=== PATIENT | female | born 1935 | race Caucasian/White ===

== ENCOUNTER 2020-05-22 09:13 | Outpatient (REF) | payer MEDICARE, SELFPAY ==
[2020-05-22 12:00] LABS: Free T4 (Free Thyroxine) 0.81 ng/dL (0.71-1.85)
== END 2020-05-22 09:14 | disposition home or self-care (01) ==
LOC: HO.HMGCLDS 09:13
PROVIDERS: PCP Internal Medicine; Visit Provider Internal Medicine Endocrinology, Diabetes & Metabolism
DX: R94.6 Abnormal results of thyroid function studies (principal)
CPT/HCPCS: 36415; 84439; 84443

== ENCOUNTER → 2020-05-31 09:48 | Outpatient (BNVA) | payer MEDICARE, SELFPAY | PROVIDERS: PCP Internal Medicine; Visit Provider Internal Medicine Endocrinology, Diabetes & Metabolism | DX: E04.2 Nontoxic multinodular goiter (principal); E06.3 Autoimmune thyroiditis | CPT/HCPCS: 99212 ==

== ENCOUNTER 2020-06-06 11:07 | Outpatient (REF) | payer MEDICARE, SELFPAY ==
--- NOTE | ~2020-06-06 | US_ITS ---
EXAMINATION: US THYROID CLINICAL INFORMATION: Nontoxic multinodular goiter. COMPARISON: None TECHNIQUE: Linear transducer clemente-scale and color Doppler examination with attention to the region of the thyroid. FINDINGS: SIZE: Measurements of the thyroid lobes and nodules are given in sagittal, anteroposterior and transverse dimensions respectively. Right Thyroid Lobe: 3.75 x 1.90 x 1.54 cm, volume 5.75 mL. Previously it measured 3.4 x 1.6 x 1.5 cm and volume 4.3 mL. Parenchyma: The gland echotexture is heterogeneous. Thyroid vascularity is increased. Left Thyroid Lobe: 4.05 x 1.63 x 1.59 cm, volume 5.48 mL. Parenchyma: The gland echotexture is heterogeneous. Thyroid vascularity is normal. Isthmus: 0.19 cm in maximum AP dimension. Previously it measured 0.21 cm. Estimated total number of nodules greater than or equal to 1 cm: 3. Drapery Inspector nodules are described as follows: 1. Location: Midpole. Size: 1.3 x 0.95 x 1.1 cm, volume 0.71 mL. Previously measured 1.2 x 1.0 x 1.1 cm and volume 0.69 mL. Nodule characteristics: Composition: Mixed cystic and solid (1). Echogenicity: Hyperechoic (1). Shape: Not taller than wide (0). Margins: Smooth (0). Echogenic Foci: None (0). ACR TI-RADS total points: 2 ACR TI-RADS category: 2 2. Location: Midpole. Size: 1.3 x 0.80 x 1.1 cm, volume 0.60 mL. Previously measured 1.4 x 0.80 x 1.1 cm and volume 0.64 mL. Nodule characteristics: Composition: Mixed cystic and solid (1). Echogenicity: Hyperechoic (1). Shape: Not taller than wide. Margins: Smooth (0). Echogenic Foci: None (0). ACR TI-RADS total points: 2 ACR TI-RADS category: 2 3. Location: Lower pole. Size: 1.2 x 1.2 x 1.2 cm, volume 0.90 mL. Nodule characteristics: Composition: Mixed cystic and solid (1). Echogenicity: Hyperechoic (1). Shape: Not taller than wide. Margins: Smooth (0). Echogenic Foci: None (0). ACR TI-RADS total points: 2 ACR TI-RADS category: 2 NODES: No lymphadenopathy is seen in the tissue surrounding the thyroid gland. US/US thyroid IMPRESSION: Mixed nodules in the right and left lobe with TI-RADS grade 2. A 1-year followup can be performed. ACR TI-RADS RECOMMENDATION REFERENCE: Ultrasound-guided fine-needle aspiration, followup ultrasound, no further follow up. * TR1 (0 point) and TR 2 (2 points): No FNA or follow up * TR3 (3 points): FNA if more than or equal to 2.5 cm in maximum dimension, followup ultrasound in 1, 3 and 5 years if 1.5 to 2.4 cm in maximum dimension. * TR4 (4-6 points): FNA if more than or equal to 1.5 cm in maximum dimension, followup ultrasound in 1, 2, 3 and 5 years if 1 to 1.4 cm in maximum dimension. * TR5 (more than or equal to 7 points): FNA if more than or equal to 1 cm in maximum dimension, followup ultrasound every year for 5 years if 0.5 to 0.9 cm in maximum dimension. * TR3, TR4 or TR5 nodules that are below the size threshold for follow up receive no follow up.
== END 2020-06-06 11:08 | disposition home or self-care (01) ==
LOC: HO.HMGCX 11:07
PROVIDERS: PCP Internal Medicine; Visit Provider Internal Medicine Endocrinology, Diabetes & Metabolism
DX: E04.2 Nontoxic multinodular goiter (principal)
CPT/HCPCS: 76536

== ENCOUNTER 2020-09-10 06:04 | Outpatient (REF) | payer MEDICARE, SELFPAY ==
[2020-09-10 11:23] LABS: MANUAL DIFF FLAG NO
[2020-09-10 11:29] LABS: Basophils Absolute Auto 0.1 X10*3/uL (0.0-0.2); Basophils Percent Auto 0.7 % (0-2); Eosinophils Absolute Auto 0.3 X10*3/uL (0.0-0.4); Eosinophils Percent Auto 3.4 % (0-4); Hemoglobin 14.7 g/dl (12.0-16.0); Imm Gran Abs Auto 0.04 X10*3/uL (0.00-0.03); Imm Gran Pct Auto 0.4 % (0.0-0.4); Lymphocytes Absolute Auto 3.1 X10*3/uL (1.2-4.9); Lymphocytes Percent Auto 33.6 % (20-40); Mean Corpuscular HGB Conc 31.3 g/dl (31.0-35.0); Mean Corpuscular Hemoglobin 28.1 pg (27.0-33.0); Mean Corpuscular Volume 89.7 fL (80-98); Mean Platelet Volume 10.1 fL (9.4-12.3); Monocytes Absolute Auto 0.7 X10*3/uL (0.1-1.2); Monocytes Percent Auto 7.8 % (2-11); Neutrophils Percent Auto 54.1 % (45-73); Platelet Count 310 X10*3/uL (160-400); Red Blood Count 5.24 X10*6/uL (4.20-5.50); White Blood Count 9.2 X10*3/uL (4.8-10.8)
[2020-09-10 12:15] LABS: Free T4 (Free Thyroxine) 0.89 ng/dL (0.71-1.85); Thyroid Stimulating Hormone 3.46 uIU/mL (0.32-4.0); Vitamin D 25-OH Total 41.2 ng/mL (>30)
[2020-09-10 12:16] LABS: Alanine Aminotransferase < 6 U/L (0-31); Albumin Level 4.3 g/dL (3.5-5.0); Alkaline Phosphatase 57 U/L (39-117); Anion Gap 12 (12-20); Aspartate Amino Transferase 14 U/L (5-31); Bilirubin Total 0.7 mg/dL (0.0-1.0); Blood Urea Nitrogen 12 mg/dL (9-16); Calcium 9.5 mg/dL (8.4-10.2); Carbon Dioxide 27 mmol/L (22-29); Chloride 105 mmol/L (96-108); Cholesterol 214 mg/dL; Estimated Glomerular Filt Rate > 60; Glucose Fasting 89 mg/dL (60-99); HDL Cholesterol 57 mg/dL; LDL Cholesterol Calculated 131 mg/dl; Potassium 4.3 mmol/L (3.3-5.1); Sodium 140 mmol/L (135-145); Total Protein 6.8 g/dL (6.5-8.0); Triglycerides 133 mg/dL
[2020-09-10 12:27] LABS: Folate > 20.0 ng/mL (> or = 4.0); Vitamin B12 > 2000 pg/mL (200-900)
== END 2020-09-10 06:05 | disposition home or self-care (01) ==
LOC: HO.HMGCLDS 06:04
PROVIDERS: PCP Internal Medicine; Visit Provider Internal Medicine
DX: Z13.1 Encounter for screening for diabetes mellitus (principal); E78.00 Pure hypercholesterolemia, unspecified; E04.1 Nontoxic single thyroid nodule; G70.00 Myasthenia gravis without (acute) exacerbation
CPT/HCPCS: 36415; 80053; 80061; 82306; 82607; 82746; 84439; 84443; 85025

== ENCOUNTER 2021-05-27 08:48 | Outpatient (REF) | payer MEDICARE, SELFPAY ==
--- NOTE | ~2021-05-27 | US_ITS ---
EXAMINATION: US THYROID CLINICAL INFORMATION: Nontoxic multinodular goiter. COMPARISON: Thyroid ultrasound 06/06/2020. TECHNIQUE: Linear transducer grayscale and color Doppler examination with attention to the region of the thyroid. FINDINGS: SIZE: Measurements of the thyroid lobes and nodules are given in sagittal, anteroposterior and transverse dimensions respectively. Right Thyroid Lobe: 3.41 x 1.38 x 1.65 cm, volume 4.07 mL. Previously 3.75 x 1.90 x 1.54 cm, volume 5.75 mL. Parenchyma: The gland echotexture is heterogeneous. Thyroid vascularity is normal. Left Thyroid Lobe: 3.65 x 1.74 x 1.63 cm, volume 5.44 mL. Previously 4.05 x 1.63 x 1.59 cm, volume 5.48 mL. Parenchyma: The gland echotexture is heterogeneous. Thyroid vascularity is increased. Isthmus: 0.16 cm in maximum AP dimension. Previously 0.19 cm. Estimated total number of nodules greater than or equal to 1 cm: 3. Luggage Attendant nodules are described as follows: 1. Location: Right mid. Size: 1.33 x 0.95 x 1.12 cm, volume 0.74 mL. Previously: 1.3 x 0.95 x 1.1 cm, volume 0.71 mL. Nodule characteristics: Composition: Mixed cystic and solid (1). Echogenicity: Hyperechoic (1). Shape: Not taller than wide (0). Margins: Smooth (0). Echogenic Foci: None (0). ACR TI-RADS total points: 2 Previous: 2 ACR TI-RADS category: 2 Previous: 2 Significant change in size (>/= 20% in 2 dimensions and minimal increase of 2 mm or 50% or greater increase in volume): Change in features: Change in ACR TI-RADS risk category: 2. Location: Left inferior. Size: 1.13 x 1.10 x 1.15 cm, volume 0.75 mL. Previously: 1.2 x 1.2 x 1.2 cm, volume 0.90 mL. Nodule characteristics: Composition: Mixed cystic and solid (1). Echogenicity: Hyperechoic (1). Shape: Not taller than wide (0). Margins: Smooth (0). Echogenic Foci: None (0). ACR TI-RADS total points: 2 Previous: 2 ACR TI-RADS category: 2 Previous: 2 Significant change in size (>/= 20% in 2 dimensions and minimal increase of 2 mm or 50% or greater increase in volume): Change in features: Change in ACR TI-RADS risk category: 3. Location: Left mid. Size: 0.70 x 0.47 x 0.60 cm, volume 0.10 mL. Previously: Not documented on the previous study. Nodule characteristics: Composition: Solid/almost completely solid (2). Echogenicity: Cannot be determined (1). Shape: Not taller than wide (0). Margins: Smooth (0). Echogenic Foci: None (0). ACR TI-RADS total points: 3 ACR TI-RADS category: 3 4. Location: Left superior. Size: 1.19 x 0.86 x 1.16 cm, volume 0.62 mL. Previously: 1.3 x 0.80 x 1.1 cm, volume 0.60 mL. Nodule characteristics: Composition: Mixed cystic and solid (1). Echogenicity: Hyperechoic (1). Shape: Not taller than wide (0). Margins: Smooth (0). Echogenic Foci: None (0). ACR TI-RADS total points: 2 Previous: 2 ACR TI-RADS category: 2 Previous: 2 Significant change in size (>/= 20% in 2 dimensions and minimal increase of 2 mm or 50% or greater increase in volume): Change in features: Change in ACR TI-RADS risk category: NODES: No lymphadenopathy is seen in the tissue surrounding the thyroid gland. US/US thyroid IMPRESSION: For follow-up Heterogeneous thyroid gland with bilateral nodules. Nodules do not meet TI RADS criteria for fine-needle aspiration or follow-up. ACR TI-RADS RECOMMENDATION REFERENCE: Ultrasound-guided fine-needle aspiration, followup ultrasound, no further follow up. * TR1 (0 point) and TR 2 (2 points): No FNA or follow up * TR3 (3 points): FNA if more than or equal to 2.5 cm in maximum dimension, followup ultrasound in 1, 3 and 5 years if 1.5 to 2.4 cm in maximum dimension. * TR4 (4-6 points): FNA if more than or equal to 1.5 cm in maximum dimension, followup ultrasound in 1, 2, 3 and 5 years if 1 to 1.4 cm in maximum dimension. * TR5 (more than or equal to 7 points): FNA if more than or equal to 1 cm in maximum dimension, followup ultrasound every year for 5 years if 0.5 to 0.9 cm in maximum dimension. * TR3, TR4 or TR5 nodules that are below the size threshold for follow up receive no follow up.
== END 2021-05-27 08:49 | disposition home or self-care (01) ==
LOC: HO.HMGCX 08:48
PROVIDERS: PCP Internal Medicine; Visit Provider Internal Medicine
DX: E04.2 Nontoxic multinodular goiter (principal)
CPT/HCPCS: 76536

== ENCOUNTER 2022-04-14 09:12 | Outpatient (REF) | payer MEDICARE, SELFPAY ==
[2022-04-14 11:52] LABS: MANUAL DIFF FLAG NO
[2022-04-14 12:14] LABS: Basophils Absolute Auto 0.1 X10*3/uL (0.0-0.2); Basophils Percent Auto 0.5 % (0-2); Eosinophils Absolute Auto 0.1 X10*3/uL (0.0-0.4); Eosinophils Percent Auto 1.1 % (0-4); Hematocrit 46.9 % (37.0-47.0); Hemoglobin 14.8 g/dl (12.0-16.0); Imm Gran Abs Auto 0.05 X10*3/uL (0.00-0.03); Imm Gran Pct Auto 0.5 % (0.0-0.4); Lymphocytes Percent Auto 29.4 % (20-40); Mean Corpuscular HGB Conc 31.6 g/dl (31.0-35.0); Mean Corpuscular Hemoglobin 26.6 pg (27.0-33.0); Mean Corpuscular Volume 84.2 fL (80.0-98.0); Mean Platelet Volume 10.1 fL (9.4-12.3); Monocytes Absolute Auto 0.6 X10*3/uL (0.1-1.2); Monocytes Percent Auto 6.1 % (2-11); Neutrophils Absolute Auto 6.3 x10*3/uL (2.0-8.3); Neutrophils Percent Auto 62.4 % (45-73); Platelet Count 376 X10*3/uL (160-400); Red Blood Count 5.57 X10*6/uL (4.20-5.50); Red Cell Distribution Width 15.2 % (11.0-16.0); White Blood Count 10.1 X10*3/uL (4.8-10.8)
[2022-04-14 12:33] LABS: Alanine Aminotransferase 6 U/L (0-31); Albumin Level 4.2 g/dL (3.5-5.0); Alkaline Phosphatase 60 U/L (39-117); Anion Gap 17 (12-20); Aspartate Amino Transferase 13 U/L (5-31); Bilirubin Total 0.5 mg/dL (0.0-1.0); Blood Urea Nitrogen 17 mg/dL (9-16); Calcium 9.9 mg/dL (8.4-10.2); Carbon Dioxide 25 mmol/L (22-29); Chloride 106 mmol/L (96-108); Cholesterol 212 mg/dL; Estimated Glomerular Filt Rate > 60; Glucose Random 104 mg/dL (60-115); HDL Cholesterol 57 mg/dL; LDL Cholesterol Calculated 133 mg/dl; Potassium 4.5 mmol/L (3.3-5.1); Sodium 143 mmol/L (135-145); Total Protein 6.7 g/dL (6.5-8.0); Triglycerides 112 mg/dL
[2022-04-14 13:07] LABS: Folate 17.1 ng/mL (> or = 4.0); Free T4 (Free Thyroxine) 0.95 ng/dL (0.71-1.85); Thyroid Stimulating Hormone 3.52 uIU/mL (0.32-4.0); Vitamin B12 460 pg/mL (200-900)
== END 2022-04-14 09:13 | disposition home or self-care (01) ==
LOC: HO.HMGCLDS 09:12
PROVIDERS: Visit Provider Internal Medicine
DX: E04.2 Nontoxic multinodular goiter (principal); E78.00 Pure hypercholesterolemia, unspecified
CPT/HCPCS: 36415; 80053; 80061; 82306; 82607; 82746; 84439; 84443; 85025

== ENCOUNTER 2022-05-06 08:24 | Outpatient (REF) | payer MEDICARE, SELFPAY ==
--- NOTE | ~2022-05-06 | MR_ITS ---
EXAMINATION: MR BRAIN WITH AND WITHOUT CONTRAST CLINICAL INFORMATION: Trigeminal neuralgia, left, mostly resolved symptoms, history of myasthenia gravis COMPARISON: CT head 05/13/2019 TECHNIQUE: MRI of the brain was obtained using routine sequences before and following administration of intravenous contrast. A total of 4.5 mL of Gadavist was administered intravenously. FINDINGS: Motion degraded examination. Unremarkable appearance of the trigeminal nerves along their cisternal segments and within Meckel's caves. No evidence of neurovascular compression. No acute infarct. No acute intracranial hemorrhage or extra-axial fluid collection. Mild generalized parenchymal volume loss. Patchy T2 hyperintense foci within the subcortical and periventricular white matter are nonspecific but most suggestive of moderate chronic microangiopathy. No abnormal intraparenchymal or leptomeningeal enhancement. No significant mass effect or herniation pattern. Normal enhancement of the dural venous sinuses. Normal appearance of the intracranial arterial flow voids. Normal appearance of the midline structures. Bilateral lens replacements. The paranasal sinuses and mastoids are well aerated. Normal marrow signal. Mucus retention cysts within the bilateral palatine tonsils and along the right pharyngoepiglottic fold. The patient is edentulous. Mild cervical spondylosis, partially imaged. MR/MR head/brain wo/w con IMPRESSION: No evidence of neurovascular compression of the trigeminal nerves. No other acute intracranial abnormality. 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
== END 2022-05-06 08:25 | disposition home or self-care (01) ==
LOC: HO.MRI 08:24
PROVIDERS: Visit Provider Psychiatry & Neurology Neurology
DX: G50.0 Trigeminal neuralgia (principal)
CPT/HCPCS: 70553; A9585

== ENCOUNTER 2022-06-02 10:23 | Outpatient (REF) | payer MEDICARE, SELFPAY ==
--- NOTE | ~2022-06-02 | US_ITS ---
EXAMINATION: US THYROID CLINICAL INFORMATION: Nontoxic single thyroid nodule. COMPARISON: Ultrasound soft tissue head/neck thyroid dated 05/27/2021 and 06/06/2020. TECHNIQUE: Linear transducer grayscale and color Doppler examination with attention to the region of the thyroid. FINDINGS: SIZE: Measurements of the thyroid lobes and nodules are given in sagittal, anteroposterior and transverse dimensions respectively. Right Thyroid Lobe: 3.24 x 1.36 x 1.51 cm, volume 3.45 mL. Previously 3.41 x 1.38 x 1.65 cm, volume 4.07 mL. Parenchyma: The gland echotexture is homogeneous. Thyroid vascularity is normal. Left Thyroid Lobe: 3.59 x 1.82 x 1.29 cm, volume 4.42 mL. Previously 3.65 x 1.74 x 1.63 cm, volume 5.44 mL. Parenchyma: The gland echotexture is heterogeneous. Thyroid vascularity is increased. Isthmus: 0.15 cm in maximum AP dimension. Previously 0.16 cm. Estimated total number of nodules greater than or equal to 1 cm: 3. Supervisor Line Department nodules are described as follows: 1. Location: Right mid. Size: 1.43 x 0.98 x 1.1 cm, volume 0.84 mL. Previously: 1.3 x 0.95 x 1.1 cm, volume 0.74 mL. Nodule characteristics: Composition: Mixed cystic and solid (1). Echogenicity: Isoechoic (1). Shape: Not taller than wide (0). Margins: Smooth (0). Echogenic Foci: None (0). ACR TI-RADS total points: 2 Previous: 2 ACR TI-RADS category: 2 Previous: 2 Significant change in size (>/= 20% in 2 dimensions and minimal increase of 2 mm or 50% or greater increase in volume): None Change in features: None Change in ACR TI-RADS risk category: No change 2. Location: Left inferior. Size: 1.2 x 1.3 x 1.2 cm, volume 1.0 mL. Previously: 1.1 x 1.1 x 1.1 cm, volume 0.75 mL. Nodule characteristics: Composition: Mixed cystic and solid (1). Echogenicity: Hypoechoic (2). Shape: Taller than wide (3). Margins: Smooth (0). Echogenic Foci: None (0). ACR TI-RADS total points: 6 Previous: 2 ACR TI-RADS category: 4 Previous: 2 Significant change in size (>/= 20% in 2 dimensions and minimal increase of 2 mm or 50% or greater increase in volume): None Change in features: None Change in ACR TI-RADS risk category: Increase in the TI-RADS and total points. 3. Location: Left mid. Size: 1.3 x 0.73 x 1.1 cm, volume 0.52 mL. Previously: 1.2 x 0.86 x 1.1 cm, volume 0.62 mL. Nodule characteristics: Composition: Mixed cystic and solid (1). Echogenicity: Cannot be determined (1). Shape: Not taller than wide (0). Margins: Smooth (0). Echogenic Foci: None (0). ACR TI-RADS total points: 2 Previous: 2 ACR TI-RADS category: 2 Previous: 2 Significant change in size (>/= 20% in 2 dimensions and minimal increase of 2 mm or 50% or greater increase in volume): None Change in features: None Change in ACR TI-RADS risk category: None 4. Location: Left mid. Size: 0.57 x 0.38 x 0.50 cm, volume 0.06 mL. Previously: 0.70 x 0.47 x 0.60 cm, volume 0.10 mL. Nodule characteristics: Composition: Solid/almost completely solid (2). Echogenicity: Hypoechoic (2). Shape: Not taller than wide (0). Margins: Smooth (0). Echogenic Foci: None (0). ACR TI-RADS total points: 4 Previous: 3 ACR TI-RADS category: 4 Previous: 3 Significant change in size (>/= 20% in 2 dimensions and minimal increase of 2 mm or 50% or greater increase in volume): None Change in features: None Change in ACR TI-RADS risk category: None NODES: No lymphadenopathy is seen in the tissue surrounding the thyroid gland. US/US thyroid IMPRESSION: Increase in TI-RADS category and total points left lower pole nodule. An ultrasound-guided fine-needle biopsy can be performed or a followup ultrasound in 1 year. ACR TI-RADS RECOMMENDATION REFERENCE: Ultrasound-guided fine-needle aspiration, followup ultrasound, no further follow up. * TR1 (0 point) and TR2 (2 points): No FNA or follow up * TR3 (3 points): FNA if more than or equal to 2.5 cm in maximum dimension, followup ultrasound in 1, 3 and 5 years if 1.5 to 2.4 cm in maximum dimension. * TR4 (4-6 points): FNA if more than or equal to 1.5 cm in maximum dimension, followup ultrasound in 1, 2, 3 and 5 years if 1 to 1.4 cm in maximum dimension. * TR5 (more than or equal to 7 points): FNA if more than or equal to 1 cm in maximum dimension, followup ultrasound every year for 5 years if 0.5 to 0.9 cm in maximum dimension. * TR3, TR4 or TR5 nodules that are below the size threshold for follow up receive no follow up.
== END 2022-06-02 10:24 | disposition home or self-care (01) ==
LOC: HO.HMGCX 10:23
PROVIDERS: PCP Internal Medicine; Visit Provider Internal Medicine
DX: E04.1 Nontoxic single thyroid nodule (principal)
CPT/HCPCS: 76536

== ENCOUNTER 2022-10-27 09:23 | Outpatient (AMB) | payer MEDICARE, SELFPAY ==
[2022-10-27 09:29] VITALS: BP 134/72; PULSE 62; O2SAT 99; BMI 20.8
--- NOTE | 2022-10-27 09:29 | A.OFFPC_ITS ---
Vital Signs 10/27/22 09:29 Height 4 ft 8 in Weight 93 lb BMI 20.8 BP 134/72 Blood Pressure Location Lt brachial Position Sitting Pulse 62 Pulse Source Pulse Oximeter Temp Source Skin Pulse Oximetry (%) 99 Oxygen Delivery Method Room Air Intake Visit Reasons: COPD Allergies cetirizine [From [facility]] Allergy (Intermediate, Verified 10/27/22 09:31) Palpitations Tobacco use date assessed: 10/27/22 Fall risk assessment: No Falls in past year Last assessed Fall Risk: 10/27/22 Dental Screening Dental Screen Date: 10/27/22 HPI COPD HPI Details 87-year-old female with history of myasthenia gravis COPD hypercholesterolemia thyroid nodule coming in with left facial pain patient was seen in April 2022. Patient is here for follow-up. Review of the notes had an MRI done of the brain which revealed negative results patient had an ultrasound of the thyroid and noted increase in size. Option of biopsy versus 1 year follow-up. facila pain - was having congestion and flonase helped for the COPD - stable and not using inhaler. PAtient has good apetitte but noted weight loss [facility] Medical History (Updated 10/27/22 @ 09:45 by Jian Gutierres MD) Adult general medical exam Cataract COPD (chronic obstructive pulmonary disease) Facial basal cell cancer Marina's disease Hiatal hernia Hypercholesterolemia Myasthenia gravis Non-toxic multinodular goiter Osteoporosis Peripheral vascular disease Thyroid nodule Surgical History S/P lumbar microdiscectomy Family History Father No problems noted. Mother Lung cancer Social History Housing: Condominium Alcohol intake: never Patient Tobacco Use Status: Never used Tobacco e-Cigarette/Vaping Use: Never Used Second Hand Smoke Exposure: No service: No Current occupational status: retired Cognitive needs: No Hearing needs: No Vision needs: Yes Questionnaire Thrive Questionnaire Date Thrive assessed: 04/29/22 AUDIT C Alcohol Use Questionnaire (AUDIT-C) 1. How often do you have a drink containing alcohol?: Never 2. How many drinks containing alcohol do you have on a typical day when you are drinking?: 1 or 2 3. How often do you have six or more drinks on one occasion?: Never Total Score: 0 WINSOME-7 AMB Questionnaire WINSOME-7 Date WINSOME - 7 assessed: 04/29/22 Source: Developed by Drs. Sagar Howard, Faustina Peter, Danny Mcfadden and colleagues, with an educational lance from [employer]. Physical exam (Primary Care) Vital Signs: Last Vital Signs Pulse 62 10/27/22 09:29 BP 134/72 10/27/22 09:29 Pulse Ox 99 10/27/22 09:29 Oxygen Delivery Method Room Air 10/27/22 09:29 BMI result Body Mass Index 20.8 Tobacco/Smoking Status: Tobacco use Status Tobacco use date assessed 10/27/22 10/27/22 09:34 Patient Tobacco Use Status Never used Tobacco 10/27/22 09:34 e-Cigarette/Vaping Use Never Used 10/27/22 09:34 Thrive Assessment: Date of Thrive Assessment Date Thrive assessed 04/29/22 10/27/22 09:34 Const General: alert; No acute distress Eyes Conjunctivae: conjunctivae normal Resp Auscultation: clear to auscultation bilaterally Cardio Rate: regular rate Rhythm: regular rhythm GI Inspection: Yes normal to inspection Extrem General: Yes normal to inspection and No edema Assessment and Plan Assessment & Plan (1) Hypercholesterolemia: Code(s): E78.00 - Pure hypercholesterolemia, unspecified Plan: Avoid fried foods, chicken skin, eggs, butter margarine, pastries and meat. Be it pork or beef they have a lot of cholesterol LDL goal of less than 130 and triglyceride of less than 150 (2) COPD (chronic obstructive pulmonary disease): Code(s): J44.9 - Chronic obstructive pulmonary disease, unspecified Qualifiers: COPD type: emphysema Emphysema type: panlobular Qualified Code(s): J43.1 - Panlobular emphysema Plan: Continue with albuterol p.r.n. (3) Myasthenia gravis: Code(s): G70.00 - Myasthenia gravis without (acute) exacerbation Plan: Continue follow-up with Neurology on pyridostigmine (4) Thyroid nodule: Comment: May 2020 last ultrasound, May 2021, May 2022Increase in TI-RADS category and total points left lower pole nodule. An ultrasound-guided fine-needle biopsy can be performed or a followup ultrasound in 1 year. Code(s): E04.1 - Nontoxic single thyroid nodule Plan: Ultrasound done May 2022 (5) Left facial pain: Code(s): R51.9 - Headache, unspecified Plan: Placed on carbamazepine 100 mg once a day Orders: Orders Vitamin B12 and Folate Today G70.00 - Myasthenia gravis without (acute) exacerbation Comprehensive Met. Panel Today G70.00 - Myasthenia gravis without (acute) exacerbation Lactate Dehydrogenase Today G70.00 - Myasthenia gravis without (acute) exacerbation Free T4 (Free Thyroxine) Today G70.00 - Myasthenia gravis without (acute) exacerbation Thyroid Stimulating Hormone Today G70.00 - Myasthenia gravis without (acute) exacerbation Vitamin D 25-OH Total Today G70.00 - Myasthenia gravis without (acute) exacerbation Complete Blood Count Auto Diff Today G70.00 - Myasthenia gravis without (acute) exacerbation Carbamazepine Tegretol Today R51.9 - Headache, unspecified Thyroid Peroxidase Antibodies Today E04.1 - Nontoxic single thyroid nodule Referrals Endocrinology Referral E04.1 - Nontoxic single thyroid nodule Coding Level of Care Code Est Pt Level 4 (16488) Diagnoses Hypercholesterolemia E78.00 COPD (chronic obstructive pulmonary disease) J43.1 COPD type: emphysema Emphysema type: panlobular Myasthenia gravis G70.00 Thyroid nodule E04.1 Left facial pain R51.9
== END 2022-10-27 10:02 | disposition home or self-care (01) ==
PROVIDERS: Visit Provider Internal Medicine
DX: E78.00 Pure hypercholesterolemia, unspecified (principal); J43.1 Panlobular emphysema; G70.00 Myasthenia gravis without (acute) exacerbation; E04.1 Nontoxic single thyroid nodule; R51.9 Headache, unspecified
CPT/HCPCS: 99214

== ENCOUNTER 2023-01-06 09:25 | Outpatient (REF) | payer MEDICARE, SELFPAY ==
[2023-01-06 11:27] LABS: MANUAL DIFF FLAG NO
[2023-01-06 11:42] LABS: Basophils Absolute Auto 0.1 X10*3/uL (0.0-0.2); Basophils Percent Auto 0.6 % (0-2); Eosinophils Absolute Auto 0.2 X10*3/uL (0.0-0.4); Eosinophils Percent Auto 1.7 % (0-4); Hematocrit 43.9 % (37.0-47.0); Hemoglobin 13.9 g/dl (12.0-16.0); Imm Gran Abs Auto 0.04 X10*3/uL (0.00-0.03); Imm Gran Pct Auto 0.4 % (0.0-0.4); Lymphocytes Absolute Auto 3.2 X10*3/uL (1.2-4.9); Lymphocytes Percent Auto 30.9 % (20-40); Mean Corpuscular HGB Conc 31.7 g/dl (31.0-35.0); Mean Corpuscular Hemoglobin 27.6 pg (27.0-33.0); Mean Corpuscular Volume 87.3 fL (80.0-98.0); Mean Platelet Volume 10.2 fL (9.4-12.3); Monocytes Absolute Auto 0.8 X10*3/uL (0.1-1.2); Monocytes Percent Auto 7.9 % (2-11); Neutrophils Percent Auto 58.5 % (45-73); Platelet Count 311 X10*3/uL (160-400); Red Blood Count 5.03 X10*6/uL (4.20-5.50); Red Cell Distribution Width 15.2 % (11.0-16.0); White Blood Count 10.2 X10*3/uL (4.8-10.8)
[2023-01-06 12:22] LABS: Carbamazepine Tegretol < 2.0 mcg/mL (5.0-12.0)
[2023-01-06 12:44] LABS: Alanine Aminotransferase 12 U/L (0-31); Albumin Level 4.2 g/dL (3.5-5.0); Alkaline Phosphatase 56 U/L (39-117); Anion Gap 14 (12-20); Aspartate Amino Transferase 14 U/L (5-31); Bilirubin Total 0.3 mg/dL (0.0-1.0); Blood Urea Nitrogen 15 mg/dL (9-16); Calcium 9.4 mg/dL (8.4-10.2); Carbon Dioxide 24 mmol/L (22-29); Chloride 108 mmol/L (96-108); Estimated Glomerular Filt Rate > 60; Glucose Random 97 mg/dL (60-115); Lactate Dehydrogenase 192 U/L (122-220); Potassium 3.9 mmol/L (3.3-5.1); Sodium 142 mmol/L (135-145)
[2023-01-06 12:48] LABS: Free T4 (Free Thyroxine) 0.83 ng/dL (0.71-1.85); Thyroid Stimulating Hormone 3.21 uIU/mL (0.32-4.0); Vitamin D 25-OH Total 42.4 ng/mL (>30)
[2023-01-06 13:05] LABS: Folate > 20.0 ng/mL (> or = 4.0); Vitamin B12 558 pg/mL (200-900)
[2023-01-08 10:29] LABS: Thyroid Peroxidase Antibodies 87 IU/mL (<9)
== END 2023-01-06 09:26 | disposition home or self-care (01) ==
LOC: HO.HMGCLDS 09:25
PROVIDERS: PCP Internal Medicine; Visit Provider Internal Medicine
DX: R51.9 Headache, unspecified (principal); G70.00 Myasthenia gravis without (acute) exacerbation; E04.1 Nontoxic single thyroid nodule; E55.9 Vitamin D deficiency, unspecified
CPT/HCPCS: 36415; 80053; 80156; 82306; 82607; 82746; 83615; 84439; 84443; 85025; 86376

== ENCOUNTER 2023-01-26 12:54 | Outpatient (AMB) | payer MEDICARE, SELFPAY ==
[2023-01-26 12:59] VITALS: BP 140/68; PULSE 70; O2SAT 95; BMI 21.6
--- NOTE | 2023-01-26 12:59 | A.OFFPC_ITS ---
Vital Signs 01/26/23 12:59 Height 4 ft 8 in Weight 96 lb 7 oz BMI 21.6 BP 140/68 H Blood Pressure Location Lt brachial Position Sitting Pulse 70 Pulse Source Pulse Oximeter Pulse Oximetry (%) 95 Oxygen Delivery Method Room Air Intake Visit Reasons: thyroid nodule, cholesterol Oversize Load Pilot Escort Required: No Accompanied by: Self / Same As Patient Allergies cetirizine [From [facility]] Allergy (Intermediate, Verified 01/26/23 13:10) Palpitations Medication List - Last Reconciled 01/26/23 by Jian Gutierres MD aspirin (Adult Aspirin Regimen) 81 mg PO DAILY cholecalciferol (vitamin D3) 25 mcg PO DAILY cyanocobalamin (vitamin B-12) ER 1,000 mcg PO .weekly folic acid 1 mg PO DAILY moxifloxacin 0.5% drps ophthalmic (eye) ONCE Tobacco use date assessed: 10/27/22 Fall risk assessment: No Falls in past year Last assessed Fall Risk: 01/26/23 Dental Screening Dental Screen Date: 01/26/23 Did you have a dental visit in the last 12 months?: No Did you have a dental problem in the last 6 months where you did not have access to dental care?: No Was dental information given to patient?: No (Pt have dentures) HPI thyroid nodule, cholesterol HPI Details 87-year-old female with a history of tho sthenia gravis hypercholesterolemia COPD coming in for follow-up. Last seen in October 2022. carbamazepine not needed anymore and the pain i better. 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 Mother Lung cancer Social History Housing: Condominium Alcohol intake: never Patient Tobacco Use Status: Never used Tobacco e-Cigarette/Vaping Use: Never Used Second Hand Smoke Exposure: No service: No Current occupational status: retired Cognitive needs: No Hearing needs: No Vision needs: Yes Questionnaire Thrive Questionnaire Date Thrive assessed: 04/29/22 WINSOME-7 AMB Questionnaire WINSOME-7 Date WINSOME - 7 assessed: 04/29/22 Source: Developed by Drs. Sagar Howard, Faustina Peter, Danny Mcfadden and colleagues, with an educational lance from [employer]. Physical exam (Primary Care) Vital Signs: Last Vital Signs Pulse 70 01/26/23 12:59 BP 140/68 H 01/26/23 12:59 Pulse Ox 95 01/26/23 12:59 Oxygen Delivery Method Room Air 01/26/23 12:59 BMI result Body Mass Index 21.6 Tobacco/Smoking Status: Tobacco use Status Tobacco use date assessed 10/27/22 01/26/23 13:00 Patient Tobacco Use Status Never used Tobacco 01/26/23 13:00 e-Cigarette/Vaping Use Never Used 01/26/23 13:00 Thrive Assessment: Date of Thrive Assessment Date Thrive assessed 04/29/22 01/26/23 13:00 Const General: alert; No acute distress Eyes Conjunctivae: conjunctivae normal Resp Auscultation: clear to auscultation bilaterally Cardio Rate: regular rate Rhythm: regular rhythm GI Inspection: Yes normal to inspection Extrem General: Yes normal to inspection and No edema Assessment and Plan Assessment & Plan (1) Myasthenia gravis: Code(s): G70.00 - Myasthenia gravis without (acute) exacerbation Plan: Continue to follow-up with Neurology and medication (2) Hypercholesterolemia: Code(s): E78.00 - Pure hypercholesterolemia, unspecified Plan: Avoid fried foods, chicken skin, eggs, butter margarine, pastries and meat. Be it pork or beef they have a lot of cholesterol LDL goal of less than 130 and triglyceride of less than 150 (3) COPD (chronic obstructive pulmonary disease): Code(s): J44.9 - Chronic obstructive pulmonary disease, unspecified Qualifiers: COPD type: emphysema Emphysema type: panlobular Qualified Code(s): J43.1 - Panlobular emphysema Plan: Continue with inhaler as needed Medications: Changed From pyridostigmine bromide 30 mg PO TID G70.00 - Myasthenia gravis without (acute) exacerbation To pyridostigmine bromide 30 mg (1/2 x 60 mg) PO TID 30 days 45 tabs 0RF G70.00 - Myasthenia gravis without (acute) exacerbation Coding Level of Care Code Est Pt Level 4 (15998) Diagnoses Myasthenia gravis G70.00 Hypercholesterolemia E78.00 Panlobular emphysema J43.1 COPD type: emphysema Emphysema type: panlobular
== END 2023-01-26 13:49 | disposition home or self-care (01) ==
PROVIDERS: PCP Internal Medicine; Visit Provider Internal Medicine
DX: G70.00 Myasthenia gravis without (acute) exacerbation (principal); E78.00 Pure hypercholesterolemia, unspecified; J43.1 Panlobular emphysema
CPT/HCPCS: 99214

== ENCOUNTER 2023-04-28 08:56 | Outpatient (AMB) | payer MEDICARE, SELFPAY ==
[2023-04-28 08:59] VITALS: BP 132/78; PULSE 68; O2SAT 98; BMI 22.2
--- NOTE | 2023-04-28 08:59 | A.OFFPC_ITS ---
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 Required: No Allergies cetirizine [From [facility]] Allergy (Intermediate, Verified 04/28/23 08:59) Palpitations Medication List - Last Reconciled 04/28/23 by Jian Gutierres MD aspirin (Adult Aspirin Regimen) 81 mg PO DAILY cholecalciferol (vitamin D3) 25 mcg PO DAILY cyanocobalamin (vitamin B-12) ER 1,000 mcg PO .weekly folic acid 1 mg PO DAILY pyridostigmine bromide 30 mg (1/2 x 60 mg) PO TID 30 days Tobacco use date assessed: 04/28/23 Fall risk assessment: No Falls in past year Last assessed Fall Risk: 04/28/23 Dental Screening Dental Screen Date: 04/28/23 HPI thyroid nodule HPI Details 87-year-old female with a history of tho sthenia gravis hypercholest erolemia COPD last seen in January 2023 patient comes in for follow-up. 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 Mother Lung cancer Social History Housing: Condominium Alcohol intake: never Patient Tobacco Use Status: Never used Tobacco e-Cigarette/Vaping Use: Never Used Second Hand Smoke Exposure: No service: No Current occupational status: retired Cognitive needs: No Hearing needs: No Vision needs: Yes Questionnaire Thrive Questionnaire Date Thrive assessed: 04/28/23 AUDIT C Alcohol Use Questionnaire (AUDIT-C) 1. How often do you have a drink containing alcohol?: Never 2. How many drinks containing alcohol do you have on a typical day when you are drinking?: 1 or 2 3. How often do you have six or more drinks on one occasion?: Never Total Score: 0 WINSOME-7 AMB Questionnaire WINSOME-7 Date WINSOME - 7 assessed: 04/28/23 Source: Developed by Drs. Sagar Howard, Faustina Peter, Danny Mcfadden and colleagues, with an educational lance from [employer] Physical exam (Primary Care) Vital Signs: Last Vital Signs Pulse 68 04/28/23 08:59 BP 132/78 04/28/23 08:59 Pulse Ox 98 04/28/23 08:59 Oxygen Delivery Method Room Air 04/28/23 08:59 BMI result Body Mass Index 22.2 Tobacco/Smoking Status: Tobacco use Status Tobacco use date assessed 04/28/23 04/28/23 09:00 Patient Tobacco Use Status Never used Tobacco 04/28/23 09:00 e-Cigarette/Vaping Use Never Used 04/28/23 09:00 Thrive Assessment: Date of Thrive Assessment Date Thrive assessed 04/28/23 04/28/23 09:00 Const General: alert; No acute distress Eyes Conjunctivae: conjunctivae normal Resp Auscultation: clear to auscultation bilaterally Cardio Rate: regular rate Rhythm: regular rhythm GI Inspection: Yes normal to inspection Extrem General: Yes normal to inspection and No edema Assessment and Plan Assessment & Plan (1) Thyroid nodule: Comment: May 2020 last ultrasound, May 2021, May 2022Increase in TI-RADS category and total points left lower pole nodule. An ultrasound-guided fine-needle biopsy can be performed or a followup ultrasound in 1 year. Code(s): E04.1 - Nontoxic single thyroid nodule Plan: Advised to get an ultrasound this year to follow-up (2) Myasthenia gravis: Code(s): G70.00 - Myasthenia gravis without (acute) exacerbation Plan: Continue to follow-up with Neurology. On pyridostigmine (3) COPD (chronic obstructive pulmonary disease): Code(s): J44.9 - Chronic obstructive pulmonary disease, unspecified Qualifiers: COPD type: emphysema Emphysema type: panlobular Qualified Code(s): J43.1 - Panlobular emphysema Plan: Stable Orders: Orders US thyroid Today E04.1 - Nontoxic single thyroid nodule Coding Level of Care Code Est Pt Level 4 (32567) Diagnoses Thyroid nodule E04.1 Myasthenia gravis G70.00 Panlobular emphysema J43.1 COPD type: emphysema Emphysema type: panlobular
== END 2023-04-28 09:33 | disposition home or self-care (01) ==
PROVIDERS: PCP Internal Medicine; Visit Provider Internal Medicine
DX: E04.1 Nontoxic single thyroid nodule (principal); G70.00 Myasthenia gravis without (acute) exacerbation; J43.1 Panlobular emphysema
CPT/HCPCS: 99214

== ENCOUNTER 2023-05-22 09:58 | Outpatient (REF) | payer MEDICARE, SELFPAY ==
--- NOTE | ~2023-05-22 | US_ITS ---
EXAMINATION: US THYROID CLINICAL INFORMATION: Nontoxic single thyroid nodule. COMPARISON: Ultrasound soft tissue head/neck thyroid dated 06/02/2022 and 05/27/2021. TECHNIQUE: Linear transducer grayscale and color Doppler examination with attention to the region of the thyroid. FINDINGS: SIZE: Measurements of the thyroid lobes and nodules are given in sagittal, anteroposterior and transverse dimensions respectively. Right Thyroid Lobe: 3.5 x 1.7 x 1.4 cm, volume 4.4 mL. Previously 3.2 x 1.4 x 1.5 cm, volume 3.5 mL. Parenchyma: The gland echotexture is homogeneous. Thyroid vascularity is normal. Left Thyroid Lobe: 4.6 x 1.9 x 1.8 cm, volume 8.2 mL. Previously 3.6 x 1.8 x 1.3 cm, volume 4.4 mL. Parenchyma: The gland echotexture is heterogeneous. Thyroid vascularity is increased. Isthmus: 0.2 cm in maximum AP dimension. Previously 0.2 cm. Estimated total number of nodules greater than or equal to 1 cm: 3. Enthone Solder Stripper nodules are described as follows: 1. Location: Left superior. Size: 1.3 x 0.8 x 1.3 cm, volume 0.75 mL. Previously: 1.3 x 0.7 x 1.1 cm, volume 0.52 mL. Nodule characteristics: Composition: Solid/almost completely solid (2). Echogenicity: Cannot be determined (1). Shape: Not taller than wide (0). Margins: Smooth (0). Echogenic Foci: None (0). ACR TI-RADS total points: 3 Previous: 2 ACR TI-RADS category: 3 Previous: 2 Significant change in size (>/= 20% in 2 dimensions and minimal increase of 2 mm or 50% or greater increase in volume): Slightly increased. Change in features: Yes Change in ACR TI-RADS risk category: Yes 2. Location: Left medial/superior. Size: 0.8 x 0.4 x 0.6 cm, volume 0.10 mL. Previously: 0.6 x 0.4 x 0.5 cm, volume 0.06 mL. Nodule characteristics: Composition: Solid (2). Echogenicity: Hypoechoic (2). Shape: Not taller than wide (0). Margins: Smooth (0). Echogenic Foci: None (0). ACR TI-RADS total points: 4 Previous: 4 ACR TI-RADS category: 4 Previous: 4 Significant change in size (>/= 20% in 2 dimensions and minimal increase of 2 mm or 50% or greater increase in volume): Yes Change in features: No Change in ACR TI-RADS risk category: No 3. Location: Left mid/inferior. Size: 1.4 x 1.2 x 1.2 cm, volume 1.09 mL. Previously: 1.2 x 1.3 x 1.2 cm, volume 1.0 mL. Nodule characteristics: Composition: Solid/almost completely solid (2). Echogenicity: Hypoechoic (2). Shape: Not taller than wide (0). Margins: Smooth (0). Echogenic Foci: None (0). ACR TI-RADS total points: 4 Previous: 6 ACR TI-RADS category: 4 Previous: 4 Significant change in size (>/= 20% in 2 dimensions and minimal increase of 2 mm or 50% or greater increase in volume): No Change in features: No Change in ACR TI-RADS risk category: No 4. Location: Right mid. Size: 1.6 x 1.0 x 1.4 cm, volume 1.12 mL. Previously: 1.4 x 1.0 x 1.1 cm, volume 0.84 mL. Nodule characteristics: Composition: Solid (2). Echogenicity: Isoechoic (1). Shape: Not taller than wide (0). Margins: Smooth (0). Echogenic Foci: None (0). ACR TI-RADS total points: 3 Previous: 2 ACR TI-RADS category: 3 Previous: 2 Significant change in size (>/= 20% in 2 dimensions and minimal increase of 2 mm or 50% or greater increase in volume): Slightly increased. Change in features: No Change in ACR TI-RADS risk category: Yes NODES: No lymphadenopathy is seen in the tissue surrounding the thyroid gland. US/US thyroid IMPRESSION: Multiple bilateral thyroid nodules as detailed above, largest 1.4 cm left TR 4 and 1.6 cm right TR 3. Continued annual surveillance recommended. ACR TI-RADS RECOMMENDATION REFERENCE: Ultrasound-guided fine-needle aspiration, follow up ultrasound, no further followup. * TR1 (0 point) and TR2 (2 points): No FNA or followup * TR3 (3 points): FNA if more than or equal to 2.5 cm in maximum dimension, follow up ultrasound in 1, 3 and 5 years if 1.5 to 2.4 cm in maximum dimension. * TR4 (4-6 points): FNA if more than or equal to 1.5 cm in maximum dimension, follow up ultrasound in 1, 2, 3 and 5 years if 1 to 1.4 cm in maximum dimension. * TR5 (more than or equal to 7 points): FNA if more than or equal to 1 cm in maximum dimension, follow up ultrasound every year for 5 years if 0.5 to 0.9 cm in maximum dimension. * TR3, TR4 or TR5 nodules that are below the size threshold for follow up receive no followup.
== END 2023-05-22 09:59 | disposition home or self-care (01) ==
LOC: HO.HMGCX 09:58
PROVIDERS: PCP Internal Medicine; Visit Provider Internal Medicine
DX: E04.1 Nontoxic single thyroid nodule (principal)
CPT/HCPCS: 76536

== ENCOUNTER 2023-07-31 09:11 | Outpatient (AMB) | payer MEDICARE, SELFPAY ==
[2023-07-31 09:35] VITALS: BP 138/70; PULSE 59; O2SAT 97; BMI 22.0
--- NOTE | 2023-07-31 09:35 | A.OFFPC_ITS ---
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 Allergies cetirizine [From [facility]] Allergy (Intermediate, Verified 07/31/23 09:36) Palpitations Medication List - Last Reconciled 07/31/23 by Jian Gutierres MD cholecalciferol (vitamin D3) 25 mcg PO DAILY cyanocobalamin (vitamin B-12) ER 1,000 mcg PO .weekly folic acid 1 mg PO DAILY pyridostigmine bromide 30 mg (1/2 x 60 mg) PO TID 30 days Tobacco use date assessed: 07/31/23 Fall risk assessment: No Falls in past year Last assessed Fall Risk: 07/31/23 Dental Screening Dental Screen Date: 04/28/23 HPI 3mth f/u HPI Details 87-year-old female with a history of tho sthenia gravis on pyridostigmine COPD thyroid nodule coming in for follow-up. Last seen in April 2023. Patient did have a follow-up ultrasound in May 2023 noted multiple bilateral thyroid nodules largest of 1.4 cm left and 1.6 cm on the right and advised to continue surveillance. Received notes from January 2023 from endocrinology [facility] Medical History (Updated 07/31/23 @ 10:26 by Jian Gutierres MD) Adult general medical exam Marina's disease Non-toxic multinodular goiter Facial basal cell cancer Hiatal hernia Myasthenia gravis Thyroid nodule Cataract Osteoporosis COPD (chronic obstructive pulmonary disease) Hypercholesterolemia Peripheral vascular disease Surgical History S/P lumbar microdiscectomy Family History Father No problems noted. Mother Lung cancer Social History Housing: Condominium Alcohol intake: never Patient Tobacco Use Status: Never used Tobacco e-Cigarette/Vaping Use: Never Used Second Hand Smoke Exposure: No service: No Current occupational status: retired Cognitive needs: No Hearing needs: No Vision needs: Yes Questionnaire Thrive Questionnaire Date Thrive assessed: 04/28/23 AUDIT C Alcohol Use Questionnaire (AUDIT-C) 1. How often do you have a drink containing alcohol?: Never 2. How many drinks containing alcohol do you have on a typical day when you are drinking?: 1 or 2 3. How often do you have six or more drinks on one occasion?: Never Total Score: 0 WINSOME-7 AMB Questionnaire WINSOME-7 Date WINSOME - 7 assessed: 04/28/23 Source: Developed by Drs. Sagar Howard, Faustina Peter, Danny Mcfadden and colleagues, with an educational lance from [employer]. Physical exam (Primary Care) Vital Signs: Last Vital Signs Pulse 59 07/31/23 09:35 BP 138/70 07/31/23 09:35 Pulse Ox 97 07/31/23 09:35 Oxygen Delivery Method Room Air 07/31/23 09:35 BMI result Body Mass Index 22.0 Tobacco/Smoking Status: Tobacco use Status Tobacco use date assessed 07/31/23 07/31/23 09:37 Patient Tobacco Use Status Never used Tobacco 07/31/23 09:37 e-Cigarette/Vaping Use Never Used 07/31/23 09:37 Thrive Assessment: Date of Thrive Assessment Date Thrive assessed 04/28/23 07/31/23 09:37 Const General: alert; No acute distress Eyes Conjunctivae: conjunctivae normal Resp Auscultation: clear to auscultation bilaterally Cardio Rate: regular rate Rhythm: regular rhythm GI Inspection: Yes normal to inspection Extrem General: Yes normal to inspection and No edema Assessment and Plan Assessment & Plan (1) Thyroid nodule: Comment: May 2020 last ultrasound, May 2021, May 2022Increase in TI-RADS category and total points left lower pole nodule. An ultrasound-guided fine-needle biopsy can be performed or a followup ultrasound in 1 year. May 2023Multiple bilateral thyroid nodules as detailed above, largest 1.4 cm left TR 4 and 1.6 cm right TR 3. Continued annual surveillance recommended. Code(s): E04.1 - Nontoxic single thyroid nodule Plan: May 2023 last ultrasound and continued annual surveillance (2) Myasthenia gravis: Code(s): G70.00 - Myasthenia gravis without (acute) exacerbation Plan: Patient on medication follows up with Neurology (3) COPD (chronic obstructive pulmonary disease): Code(s): J44.9 - Chronic obstructive pulmonary disease, unspecified Qualifiers: COPD type: emphysema Emphysema type: panlobular Qualified Code(s): J43.1 - Panlobular emphysema Plan: Stable (4) Hypercholesterolemia: Code(s): E78.00 - Pure hypercholesterolemia, unspecified Plan: Avoid fried foods, chicken skin, eggs, butter margarine, pastries and meat. Be it pork or beef they have a lot of cholesterol (5) Urinary incontinence: Code(s): R32 - Unspecified urinary incontinence Orders: Orders Complete Blood Count Auto Diff Today G70.00 - Myasthenia gravis without (acute) exacerbation Lipid Panel Today E78.00 - Pure hypercholesterolemia, unspecified, G70.00 - Myasthenia gravis without (acute) exacerbation UA CC w/rflx Micro + Cult Today R30.0 - Dysuria, R32 - Unspecified urinary inco ntinence Comprehensive Met. Panel Today G70.00 - Myasthenia gravis without (acute) exacerbation Free T4 (Free Thyroxine) Today G70.00 - Myasthenia gravis without (acute) exacerbation Thyroid Stimulating Hormone Today G70.00 - Myasthenia gravis without (acute) exacerbation Vitamin B12 and Folate Today G70.00 - Myasthenia gravis without (acute) exacerbation Vitamin D 25-OH Total Today G70.00 - Myasthenia gravis without (acute) exacerbation Coding Level of Care Code Est Pt Level 4 (07207) Diagnoses Thyroid nodule E04.1 Myasthenia gravis G70.00 Panlobular emphysema J43.1 COPD type: emphysema Emphysema type: panlobular Hypercholesterolemia E78.00 Urinary incontinence R32
== END 2023-07-31 10:43 | disposition home or self-care (01) ==
PROVIDERS: PCP Internal Medicine; Visit Provider Internal Medicine
DX: E04.1 Nontoxic single thyroid nodule (principal); G70.00 Myasthenia gravis without (acute) exacerbation; J43.1 Panlobular emphysema; E78.00 Pure hypercholesterolemia, unspecified; R32 Unspecified urinary incontinence
CPT/HCPCS: 99214

== ENCOUNTER 2024-02-04 09:39 | Outpatient (AMB) | payer MEDICARE, SELFPAY ==
[2024-02-04 09:42] VITALS: BP 148/78; PULSE 77; O2SAT 96; BMI 22.4
--- NOTE | 2024-02-04 09:42 | MHC.PC.OV ---
Vital Signs 02/04/24 09:42 Height 4 ft 8 in Weight 100 lb BMI 22.4 BP 148/78 H Blood Pressure Location Lt brachial Position Sitting Pulse 77 Pulse Source Pulse Oximeter Pulse Oximetry (%) 96 Oxygen Delivery Method Room Air Intake Visit Reasons: PE Allergies cetirizine [From [facility]] Allergy (Intermediate, Verified 02/04/24 09:42) Palpitations Medication List - Last Reconciled 02/04/24 by Jian Gutierres MD cholecalciferol (vitamin D3) 25 mcg PO DAILY cyanocobalamin (vitamin B-12) ER 1,000 mcg PO .weekly folic acid 1 mg PO DAILY propylene glycol 0.6% (Systane Balance) 1 drp ophthalmic (eye) DAILY PRN Tobacco use date assessed: 07/31/23 Fall risk assessment: No Falls in past year Last assessed Fall Risk: 02/04/24 Dental Screening Dental Screen Date: 04/28/23 HPI PE HPI Details 88-year-old female with myasthenia gravis COPD hypercholesterolemia coming in for physical exam last seen in July 2023. Review of the notes seen [place] [facility] last year continuing to monitor the thyroid nodule. BP elevated today but has been good. declined hearing test. 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 Mother Lung cancer Social History Housing: Condominium Alcohol intake: never Patient Tobacco Use Status: Never used Tobacco Tobacco use type: Cigarette e-Cigarette/Vaping Use: Never Used Second Hand Smoke Exposure: No service: No Current occupational status: retired Cognitive needs: No Hearing needs: No Vision needs: Yes Questionnaire PHQ-9 Over the last 2 weeks, how often have you been bothered by any of the following problems? 1. Little interest or pleasure in doing things: not at all 2. Feeling down, depressed, or hopeless: not at all 3. Trouble falling or staying asleep, or sleeping too much: not at all 4. Feeling tired or having little energy: not at all 5. Poor appetite or overeating: not at all 6. Feeling bad about yourself - or that you are a failure or have let yourself or your family down: not at all 7. Trouble concentrating on things, such as reading the newspaper or watching television: not at all 8. Moving or speaking so slowly that other people could have noticed. Or the opposite - being so fidgety or restless that you have been moving around a lot more than usual: not at all 9. Thoughts that you would be better off or of hurting yourself in some way: not at all Total score: 0 Source: Developed by Drs. Sagar Howard, Faustina Peter, Danny Mcfadden and colleagues, with an educational lance from [employer]. Thrive Questionnaire Date Thrive assessed: 04/28/23 I am a: Patient What is your living situation today?: I have a steady place to live Within the past 12 months, did the food you bought not last and you didn't have the money to get more?: Never true Within the past 12 months, did you worry whether your food would run out before you got money to buy more?: Never true Do you have trouble paying for medicines?: No Do you have trouble getting transportation to medical appointments?: No Do you have trouble paying your heating and electricity bill?: No Do you have trouble taking care of your child, family member or friend?: No Do you have trouble with day-to-day activities such as bathing, preparing meals, shopping, managing finances, etc.?: No Are you currently unemployed and looking for a job?: No Are you interested in more education?: No Please select the resources that you would like help with: None Currently or been in a relationship where the following occur: No concerns reported THRIVE Score: 0 AUDIT C Alcohol Use Questionnaire (AUDIT-C) 1. How often do you have a drink containing alcohol?: Never Total Score: 0 WINSOME-7 AMB Questionnaire WINSOME-7 Date WINSOME - 7 assessed: 04/28/23 Feeling nervous, anxious, or on edge: 0 = Not at all Not being able to stop or control worryin = Not at all Worrying too much about different things: 0 = Not at all Trouble relaxin = Not at all Being so restless that it is hard to sit still: 0 = Not at all Becoming easily annoyed or irritable: 0 = Not at all Feeling afraid as if something awful might happen: 0 = Not at all Total WINSOME-7 score (0-4 normal; 5-9 mild; 10-14 moderate; 15-21 severe): 0 Source: Developed by Drs. Sagar Howard, Faustina Peter, Danny Mcfadden and colleagues, with an educational lance from [employer]. Review of Systems Const Denies poor appetite and Denies weakness Eyes Denies no additional complaints ENT Reports Normal hearing present, Denies dizziness, Denies nasal congestion, Denies tinnitus and Denies sore throat Card Denies chest pain, Denies syncope, Denies rapid heart rate and Denies dyspnea Resp Denies cough and Denies dyspnea GI Denies change in stool character, Reports constipation, Denies diarrhea, Denies nausea and Denies vomiting Denies urinary frequency, Denies difficulty voiding and Denies dysuria Neuro Reports Normal hearing present, Denies confusion, Denies dizziness, Denies syncope and Denies weakness Psych Denies confusion Physical exam (Primary Care) Vital Signs: Last Vital Signs Pulse 77 02/04/24 09:42 BP 148/78 H 02/04/24 09:42 Pulse Ox 96 02/04/24 09:42 Oxygen Delivery Method Room Air 02/04/24 09:42 BMI result Body Mass Index 22.4 Tobacco/Smoking Status: Tobacco use Status Tobacco use date assessed 07/31/23 02/04/24 09:47 Patient Tobacco Use Status Never used Tobacco 02/04/24 09:47 Tobacco use type Cigarette 02/04/24 09:47 e-Cigarette/Vaping Use Never Used 02/04/24 09:47 PHQ-9: PHQ-9 Score PHQ-9: Total score 0 02/04/24 09:47 Thrive Assessment: Date of Thrive Assessment Date Thrive assessed 04/28/23 02/04/24 09:47 Currently or been in a relationship where the following occur: No concerns reported Const General: No confusion Orientation/consciousness: No confusion HENMT Head: Yes normocephalic Ears: external ears normal and TM's normal bilaterally Face and sinus: Yes normal facial exam Mouth: moist mucous membranes Throat: Yes tonsils normal Eyes Conjunctivae: conjunctivae normal Pupils: Equal, round and reactive pupils present and Pupil accommodation reflex normal Direct Ophthalmoscopy: normal light reflex Neck Neck: No lymphadenopathy Thyroid: Thyroid normal Chest Chest palpation & inspection: normal inspection of the chest Resp Effort & Inspection: normal respiratory effort and no audible wheezes Auscultation: clear to auscultation bilaterally, no crackles, no wheezes and lung sounds not diminished Cardio Rate: regular rate Rhythm: regular rhythm Peripheral pulses: radial pulses present and dorsalis pedis present GI Palpation (GI): no masses Auscultation: normal bowel sounds and normoactive bowel sounds Rectal Exam - Female: deferred Skin General skin exam: no rashes or lesions noted Rashes: no rashes Neuro General: No confusion Cranial nerves: Yes Equal, round and reactive pupils present and Yes Normal hearing present Cognition (Neuro): normal cognition Gait exam (Neuro): Normal gait present Motor exam (neuro): 5/5 motor strength present throughout Deep tendon reflexes (DTR's): Right brachioradialis reflex intensity grade: 2+, Left brachioradialis reflex intensity grade: 2+, Right patellar reflex intensity grade: 2+ and Left patellar reflex intensity grade: 2+ Extrem General: No edema Coding Level of Care Code Est Pt Prev Care >65y(75568) Diagnoses Annual physical exam Z00. Myasthenia gravis G70.00 Panlobular emphysema J43.1 COPD type: emphysema Emphysema type: panlobular Hypercholesterolemia E78.00 Thyroid nodule E04.1 Blood pressure elevated without history of HTN R03.0 Continuous leakage of urine N39.45 Urinary Incontinence type: continuous leakage Assessment & Plan Assessment & Plan (1) Annual physical exam: Code(s): Z00.00 - Encounter for general adult medical examination without abnormal findings Category: Medical Plan: Patient is advised to eat healthy, keep well hydrated, keep active and have adequate sleep. (2) Myasthenia gravis: Code(s): G70.00 - Myasthenia gravis without (acute) exacerbation Category: Medical Plan: Continuing with pyridostigmine under neurology (3) COPD (chronic obstructive pulmonary disease): Code(s): J44.9 - Chronic obstructive pulmonary disease, unspecified Category: Medical Qualifiers: COPD type: emphysema Emphysema type: panlobular Qualified Code(s): J43.1 - Panlobular emphysema Plan: Stable (4) Hypercholesterolemia: Code(s): E78.00 - Pure hypercholesterolemia, unspecified Category: Medical Plan: Continuing to monitor. (5) Thyroid nodule: Comment: May 2020 last ultrasound, May 2021, May 2022Increase in TI-RADS category and total points left lower pole nodule. An ultrasound-guided fine-needle biopsy can be performed or a followup ultrasound in 1 year. May 2023Multiple bilateral thyroid nodules as detailed above, largest 1.4 cm left TR 4 and 1.6 cm right TR 3. Continued annual surveillance recommended. Code(s): E04.1 - Nontoxic single thyroid nodule Category: Medical Plan: Patient has seen Endocrinology and continuing to monitor with ultrasound (6) Blood pressure elevated without history of HTN: Code(s): R03.0 - Elevated blood-pressure reading, without diagnosis of hypertension Category: Medical Plan: monitor the BP and record, low salt diet (7) Urinary incontinence: Code(s): R32 - Unspecified urinary incontinence Category: Medical Qualifiers: Urinary Incontinence type: continuous leakage Qualified Code(s): N39.45 - Continuous leakage Plan: Timed voiding meaning every 1-2 hours even if you do not feel like urinating empty the bladder, avoid drinks with high sweet content like juices or caffeine that makes her urinate, 2 hours before you sleep hold liquids so that in the morning you do not get the bladder to be too full. Will have to do urinalysis 1st Medications: Refilled pyridostigmine bromide 30 mg (1/2 x 60 mg) PO TID 30 days 45 tabs 0RF G70.00 - Myasthenia gravis without (acute) exacerbation
== END 2024-02-04 10:26 | disposition home or self-care (01) ==
PROVIDERS: PCP Internal Medicine; Visit Provider Internal Medicine
DX: G70.00 Myasthenia gravis without (acute) exacerbation (principal); J43.1 Panlobular emphysema; R03.0 Elevated blood-pressure reading, without diagnosis of hypertension; N39.45 Continuous leakage; E78.00 Pure hypercholesterolemia, unspecified; E04.1 Nontoxic single thyroid nodule

== ENCOUNTER → 2024-02-04 09:39 | Outpatient (BNVA) | payer MEDICARE, SELFPAY | PROVIDERS: PCP Internal Medicine; Visit Provider Internal Medicine | DX: Z00.00 Encounter for general adult medical examination without abnormal findings (principal); G70.00 Myasthenia gravis without (acute) exacerbation; J43.1 Panlobular emphysema; E78.00 Pure hypercholesterolemia, unspecified; E04.1 Nontoxic single thyroid nodule; R03.0 Elevated blood-pressure reading, without diagnosis of hypertension; N39.45 Continuous leakage | CPT/HCPCS: 96127; 99212 ==

== ENCOUNTER 2024-03-23 10:23 | Outpatient (REF) | payer MEDICARE, SELFPAY ==
[2024-03-23 13:07] LABS: Appearance Urine Turbid; Color Urine Yellow; Glucose Urine UA Negative (Negative); Leukocyte Esterase Urine Small (1+) (Negative); Nitrite Urine Positive (Negative); Specific Gravity - Urine >= 1.030 (1.005-1.025); UMIC TRIGGER UACC YES; Urine Blood Trace (Negative); Urine Ketones Trace mg/dL (Negative); Urine Protein Negative (Neg-Trace)
[2024-03-23 13:12] LABS: Bacteria Urine 1+ (None Seen); Hyaline Casts Urine 0-2 /LPF (0-2); UACC Culture Trigger YES
== END 2024-03-23 10:24 | disposition home or self-care (01) ==
LOC: HO.HMGCLDS 10:23
PROVIDERS: PCP Internal Medicine; Visit Provider Internal Medicine
DX: R30.0 Dysuria (principal); R32 Unspecified urinary incontinence
CPT/HCPCS: 81001; 87086; 87088; 87186

== ENCOUNTER 2024-03-24 07:14 | Outpatient (REF) | payer MEDICARE, SELFPAY ==
[2024-03-24 10:13] LABS: MANUAL DIFF FLAG NO
[2024-03-24 10:23] LABS: Basophils Absolute Auto 0.1 X10*3/uL (0.0-0.2); Basophils Percent Auto 0.6 % (0-2); Eosinophils Absolute Auto 0.3 X10*3/uL (0.0-0.4); Eosinophils Percent Auto 3.2 % (0-4); Hematocrit 46.2 % (37.0-47.0); Hemoglobin 14.8 g/dl (12.0-16.0); Imm Gran Abs Auto 0.03 X10*3/uL (0.00-0.03); Imm Gran Pct Auto 0.4 % (0.0-0.4); Lymphocytes Absolute Auto 2.9 X10*3/uL (1.2-4.9); Lymphocytes Percent Auto 34.3 % (20-40); Mean Corpuscular Volume 87.3 fL (80.0-98.0); Mean Platelet Volume 9.8 fL (9.4-12.3); Monocytes Absolute Auto 0.7 X10*3/uL (0.1-1.2); Neutrophils Absolute Auto 4.5 x10*3/uL (2.0-8.3); Neutrophils Percent Auto 53.5 % (45-73); Platelet Count 316 X10*3/uL (160-400); Red Blood Count 5.29 X10*6/uL (4.20-5.50); Red Cell Distribution Width 13.5 % (11.0-16.0); White Blood Count 8.4 X10*3/uL (4.8-10.8)
[2024-03-24 10:41] LABS: Alanine Aminotransferase 6 U/L (0-31); Albumin Level 4.2 g/dL (3.5-5.0); Anion Gap 12 (12-20); Aspartate Amino Transferase 19 U/L (5-31); Bilirubin Total 0.5 mg/dL (0.0-1.0); Blood Urea Nitrogen 15 mg/dL (9-16); Calcium 9.5 mg/dL (8.4-10.2); Carbon Dioxide 27 mmol/L (22-29); Chloride 106 mmol/L (96-108); Cholesterol 206 mg/dL (<200); Estimated Glomerular Filt Rate > 60; Glucose Random 98 mg/dL (60-115); HDL Cholesterol 58 mg/dL (>40); LDL Cholesterol Calculated 126 mg/dL (<100); Potassium 4.3 mmol/L (3.3-5.1); Sodium 141 mmol/L (135-145); Triglycerides 112 mg/dL (<150)
[2024-03-24 11:06] LABS: Vitamin D 25-OH Total 64.6 ng/mL (>30)
[2024-03-24 11:14] LABS: Folate 17.9 ng/mL (> or = 4.0); Vitamin B12 419 pg/mL (200-900)
[2024-03-24 12:25] LABS: Alkaline Phosphatase 57 U/L (39-117)
== END 2024-03-24 07:15 | disposition home or self-care (01) ==
LOC: HO.HMGCLDS 07:14
PROVIDERS: PCP Internal Medicine; Visit Provider Internal Medicine
DX: G70.00 Myasthenia gravis without (acute) exacerbation (principal); E78.00 Pure hypercholesterolemia, unspecified
CPT/HCPCS: 36415; 80053; 80061; 82306; 82607; 82746; 84439; 84443; 85025

== ENCOUNTER 2024-05-24 09:36 | Outpatient (AMB) | payer MEDICARE, SELFPAY ==
[2024-05-24 09:48] VITALS: BP 128/82; PULSE 60; O2SAT 97; BMI 21.9
--- NOTE | 2024-05-24 09:48 | MHC.PC.OV ---
Vital Signs 05/24/24 09:48 Height 4 ft 8 in Weight 97 lb 8 oz BMI 21.9 BP 128/82 Blood Pressure Location Lt brachial Position Sitting Pulse 60 Pulse Source Pulse Oximeter Pulse Oximetry (%) 97 Oxygen Delivery Method Room Air Intake Visit Reasons: 3mth f/u Historic Site Administrator Required: No Accompanied by: Self / Same As Patient Allergies cetirizine [From [facility]] Allergy (Intermediate, Verified 05/24/24 09:49) Palpitations Medication List - Last Reconciled 05/24/24 by Jian Gutierres MD cholecalciferol (vitamin D3) 25 mcg PO DAILY cyanocobalamin (vitamin B-12) ER 1,000 mcg PO .weekly folic acid 1 mg PO DAILY nitrofurantoin monohyd/m-cryst 100 mg (Macrobid) 100 mg PO Q12H 7 days propylene glycol 0.6% (Systane Balance) 1 drp ophthalmic (eye) DAILY PRN pyridostigmine bromide 30 mg (1/2 x 60 mg) PO TID 30 days Tobacco use date assessed: 05/24/24 Fall risk assessment: No Falls in past year Last assessed Fall Risk: 05/24/24 Dental Screening Dental Screen Date: 05/24/24 Did you have a dental visit in the last 12 months?: No Did you have a dental problem in the last 6 months where you did not have access to dental care?: No Was dental information given to patient?: No [facility] Medical History (Updated 05/24/24 @ 10:07 by Jian Gutierres MD) Adult general medical exam Marina's disease Non-toxic multinodular goiter Facial basal cell cancer Hiatal hernia Myasthenia gravis Thyroid nodule Cataract Osteoporosis COPD (chronic obstructive pulmonary disease) Hypercholesterolemia Peripheral vascular disease Surgical History S/P lumbar microdiscectomy Family History Father No problems noted. Mother Lung cancer Social History Housing: Condominium Alcohol intake: never Patient Tobacco Use Status: Never used Tobacco Tobacco use type: Cigarette e-Cigarette/Vaping Use: Never Used Second Hand Smoke Exposure: No service: No Current occupational status: retired Cognitive needs: No Hearing needs: No Vision needs: Yes Questionnaire PHQ-9 Over the last 2 weeks, how often have you been bothered by any of the following problems? 1. Little interest or pleasure in doing things: not at all 2. Feeling down, depressed, or hopeless: not at all 3. Trouble falling or staying asleep, or sleeping too much: not at all 4. Feeling tired or having little energy: not at all 5. Poor appetite or overeating: not at all 6. Feeling bad about yourself - or that you are a failure or have let yourself or your family down: not at all 7. Trouble concentrating on things, such as reading the newspaper or watching television: not at all 8. Moving or speaking so slowly that other people could have noticed. Or the opposite - being so fidgety or restless that you have been moving around a lot more than usual: not at all 9. Thoughts that you would be better off or of hurting yourself in some way: not at all Total score: 0 Source: Developed by Drs. Sagar Howard, Faustina Peter, Danny Mcfadden and colleagues, with an educational lance from [employer]. Thrive Questionnaire Date Thrive assessed: 05/24/24 I am a: Patient What is your living situation today?: I have a steady place to live Within the past 12 months, did the food you bought not last and you didn't have the money to get more?: Never true Within the past 12 months, did you worry whether your food would run out before you got money to buy more?: Never true Do you have trouble paying for medicines?: No Do you have trouble getting transportation to medical appointments?: No Do you have trouble paying your heating and electricity bill?: No Do you have trouble taking care of your child, family member or friend?: No Do you have trouble with day-to-day activities such as bathing, preparing meals, shopping, managing finances, etc.?: No Are you currently unemployed and looking for a job?: No Are you interested in more education?: No Please select the resources that you would like help with: None Currently or been in a relationship where the following occur: No concerns reported THRIVE Score: 0 AUDIT C Alcohol Use Questionnaire (AUDIT-C) 1. How often do you have a drink containing alcohol?: Never 3. How often do you have six or more drinks on one occasion?: Never Total Score: 0 WINSOME-7 AMB Questionnaire WINSOME-7 Date WINSOME - 7 assessed: 05/24/24 Feeling nervous, anxious, or on edge: 0 = Not at all Not being able to stop or control worryin = Not at all Worrying too much about different things: 0 = Not at all Trouble relaxin = Not at all Being so restless that it is hard to sit still: 0 = Not at all Becoming easily annoyed or irritable: 0 = Not at all Feeling afraid as if something awful might happen: 0 = Not at all Total WINSOME-7 score (0-4 normal; 5-9 mild; 10-14 moderate; 15-21 severe): 0 Source: Developed by Drs. Sagar Howard, Faustina Peter, Danny Mcfadden and colleagues, with an educational lance from [employer]. Physical exam (Primary Care) Vital Signs: Last Vital Signs Pulse 60 05/24/24 09:48 BP 128/82 05/24/24 09:48 Pulse Ox 97 05/24/24 09:48 Oxygen Delivery Method Room Air 05/24/24 09:48 BMI result Body Mass Index 21.9 Tobacco/Smoking Status: Tobacco use Status Tobacco use date assessed 05/24/24 05/24/24 09:57 Patient Tobacco Use Status Never used Tobacco 05/24/24 09:57 Tobacco use type Cigarette 05/24/24 09:57 e-Cigarette/Vaping Use Never Used 05/24/24 09:57 PHQ-9: PHQ-9 Score PHQ-9: Total score 0 05/24/24 12:20 Thrive Assessment: Date of Thrive Assessment Date Thrive assessed 05/24/24 05/24/24 09:57 Currently or been in a relationship where the following occur: No concerns reported Const General: alert; No acute distress Eyes Conjunctivae: conjunctivae normal Resp Auscultation: clear to auscultation bilaterally Cardio Rate: regular rate Rhythm: regular rhythm GI Inspection: Yes normal to inspection Extrem General: Yes normal to inspection and No edema Coding Level of Care Code Est Pt Level 4 (16947) Diagnoses Hypercholesterolemia E78.00 Panlobular emphysema J43.1 COPD type: emphysema Emphysema type: panlobular Myasthenia gravis G70.00 TSH elevation R79.89 Thyroid nodule E04.1 Assessment & Plan Assessment & Plan (1) Hypercholesterolemia: Code(s): E78.00 - Pure hypercholesterolemia, unspecified Category: Medical Plan: Avoid fried foods, chicken skin, eggs, butter margarine, pastries and meat. Be it pork or beef they have a lot of cholesterol LDL goal of less than 130 and triglyceride of less than 150 last blood work in March is within normal limits. (2) COPD (chronic obstructive pulmonary disease): Code(s): J44.9 - Chronic obstructive pulmonary disease, unspecified Category: Medical Qualifiers: COPD type: emphysema Emphysema type: panlobular Qualified Code(s): J43.1 - Panlobular emphysema Plan: Patient has been stable with no inhaler being used. (3) Myasthenia gravis: Code(s): G70.00 - Myasthenia gravis without (acute) exacerbation Category: Medical Plan: Continue with pyridostigmine 30 mg 3 times a day. Patient states not really happy with present neurologist. Advised to see this time and if really needed will get a different neurologist. (4) TSH elevation: Code(s): R79.89 - Other specified abnormal findings of blood chemistry Category: Medical Plan: Advised repeat testing (5) Thyroid nodule: Comment: May 2020 last ultrasound, May 2021, May 2022Increase in TI-RADS category and total points left lower pole nodule. An ultrasound-guided fine-needle biopsy can be performed or a followup ultrasound in 1 year. May 2023Multiple bilateral thyroid nodules as detailed above, largest 1.4 cm left TR 4 and 1.6 cm right TR 3. Continued annual surveillance recommended. Code(s): E04.1 - Nontoxic single thyroid nodule Category: Medical Plan: Repeat ultrasound of the thyroid this year. Plan History of Present Illness The patient is an 88-year-old female presenting for a follow-up primarily regarding her management of hypercholesterolemia, COPD, and myasthenia gravis. She was seen last for a physical exam in January 2024, with subsequent normal bloodwork indicating only an elevated TSH. The cholesterol management aims to keep LDL and triglyceride levels within target ranges, which has been achieved. Her COPD remains stable without inhaler usage, and she is under treatment with Pyridostigmine for myasthenia gravis, though frequent urination caused by the medication is a concern. She questions the myasthenia gravis diagnosis, originally confirmed in 2019 by elevated antibodies, attributing previous vocal symptoms possibly to stress rather than disease. Recently treated for a urinary tract infection, she also sought advice for vaginal health issues. Health Maintenance - Monitoring and management of hypercholesterolemia with target LDL <130 and triglycerides <150. - Routine bloodwork done in March 2024 showing normal results except for mild TSH elevation. - Repeat thyroid testing and thyroid ultrasound recommended to monitor nodule. Social History - No specific social history elements discussed. Review of Systems - Respiratory: Denies current symptoms. - Genitourinary: Reports frequent urination. - Neurology: Denies current weakness, occasional vocal changes. - Endocrine: No systemic complaints reported outside the slightly elevated TSH. - General: Implied good general health maintenance with adherence to medications. Physical Exam Results - Labs: Normal blood count, normal electrolytes, normal renal and liver function, normal blood sugar, normal cholesterol, mildly elevated TSH, elevated myasthenia gravis antibody at 18.4 (from prior testing). Plan For hypercholesterolemia, continue with the current dietary and medication regimen to maintain cholesterol levels within targeted limits. The COPD is stable, and no changes are needed at this time. Concerns regarding myasthenia gravis and the effect of Pyridostigmine may warrant a review or potential referral to a neurologist for further evaluation or alternative treatment options. A repeat thyroid function test and thyroid ultrasound should be scheduled to reassess the mildly elevated TSH and monitor the thyroid nodule. Patient was informed and verbally consented to the use of an ambient scribe for clinic note documentation during this visit. Discussion Notes During the visit, we discussed the patient's past medical history, current medication regimen, and stability of chronic conditions such as hypercholesterolemia and COPD. Concerns about the effects and accuracy of the myasthenia gravis diagnosis were also addressed, including the medication side effects and the possibility of reevaluation by a neurologist. Thyroid function was reviewed due to a mildly elevated TSH, and further testing was recommended. We discussed lifestyle management for cholesterol control, the importance of adhering to the medication regimen, and potential differences in vaginal health due to medication use or hormonal changes. I advised returning to the lab for blood work and thyroid ultrasound. Patient Instructions - Continue taking current medications as prescribed, monitor any side effects. - Schedule blood test for thyroid function in the coming weeks. - Schedule thyroid ultrasound to monitor nodule. - Follow current dietary recommendations for cholesterol management. - Report any significant changes in symptoms, especially related to myasthenia gravis, to a healthcare provider. - If encountering issues with current neurologist, consider discussing referral for second opinion. - Practice caution concerning flu, COVID, and RSV. - Use probiotics if desired for vaginal health, but reassess if no improvement is observed. - Follow-up as needed based on upcoming lab and ultrasound results. Orders: Orders Thyroid Stimulating Hormone Today R79.89 - Other specified abnormal findings of blood chemistry Free T4 (Free Thyroxine) Today R79.89 - Other specified abnormal findings of blood chemistry US thyroid Today E04.1 - Nontoxic single thyroid nodule Medications: New lactobacillus combination no.4 (Probiotic) administer with a meal 3,000 mmu cells PO DAILY 1 cap 0RF R79.89 - Other specified abnormal findings of blood chemistry Discontinued nitrofurantoin monohyd/m-cryst 100 mg (Macrobid) must administer with a meal/food Discontinued Reason: Doctor's Order 100 mg PO Q12H 7 days 14 caps 0RF
== END 2024-05-24 10:32 | disposition home or self-care (01) ==
LOC: HO.HMCH 09:37
PROVIDERS: PCP Internal Medicine; Visit Provider Internal Medicine
DX: E78.00 Pure hypercholesterolemia, unspecified (principal); J43.1 Panlobular emphysema; G70.00 Myasthenia gravis without (acute) exacerbation; R79.89 Other specified abnormal findings of blood chemistry; E04.1 Nontoxic single thyroid nodule

== ENCOUNTER → 2024-05-24 09:36 | Outpatient (BNVA) | payer MEDICARE, SELFPAY | PROVIDERS: PCP Internal Medicine; Visit Provider Internal Medicine | DX: E78.00 Pure hypercholesterolemia, unspecified (principal); J43.1 Panlobular emphysema; G47.00 Insomnia, unspecified; R79.89 Other specified abnormal findings of blood chemistry; E04.1 Nontoxic single thyroid nodule | CPT/HCPCS: 99212 ==

== ENCOUNTER 2024-06-15 10:13 | Outpatient (REF) | payer MEDICARE, SELFPAY ==
--- NOTE | ~2024-06-15 | US_ITS ---
EXAMINATION: US THYROID HISTORY: E04.1 - Nontoxic single thyroid nodule TECHNIQUE: Real-time grayscale ultrasound imaging was performed and images were reviewed. COMPARISON: Comparison is made with the prior examination dated 05/22/2023. FINDINGS: SIZE: The right thyroid lobe measures 4.0 x 1.4 x 1.6 cm. The left thyroid lobe measures 3.6 x 2.1 x 1.7 cm. The isthmus measures 3 mm. FLOW: Flow to the gland is increased. ECHOGENICITY: The echotexture of the gland is heterogeneous. NODULES: Again seen are multiple bilateral thyroid nodules as described below: Nodule #: 1 Location: Midportion of the right thyroid lobe measuring 1.4 x 0.9 x 1.1 cm (previously 1.6 x 1.0 x 1.4 cm). Shape: Wider than tall (0 points) Margins: Smooth (0 points) Echotexture: Isoechoic (1 point) Composition: Solid (2 points) Calcifications: Punctate calcifications (3 points) Total points: 6 TIRADS: TR4: Moderately suspicious. Nodule #: 2 Location: Midportion of the left thyroid lobe measuring 1.1 x 0.7 x 1.0 cm (previously 1.3 x 0.8 x 1.3 cm). Shape: Wider than tall (0 points) Margins: Smooth (0 points) Echotexture: Isoechoic (1 point) Composition: Solid (2 points) Calcifications: None (0 points) Total points: 3 TIRADS: TR3: Mildly suspicious. Nodule #: 3 Location: Midportion of the left thyroid lobe measuring 0.6 x 0.5 x 0.7 cm (previously 0.8 x 0.4 x 0.6 cm). Shape: Wider than tall (0 points) Margins: Smooth (0 points) Echotexture: Isoechoic (1 point) Composition: Solid (2 points) Calcifications: None (0 points) Total points: 3 TIRADS: TR3: Mildly suspicious. Nodule #: 4 Location: Midportion of the left thyroid lobe measuring 1.4 x 1.4 x 1.4 cm (previously 1.4 x 1.2 x 1.2 cm). Shape: Wider than tall (0 points) Margins: Smooth (0 points) Echotexture: Isoechoic (1 point) Composition: Mostly solid (2 points) Calcifications: Punctate calcifications (3 points) Total points: 6 TIRADS: TR4: Moderately suspicious. US/US thyroid IMPRESSION: Multiple bilateral thyroid nodules as described above. According to ACR TI-RADS guidelines, none of the nodules warrant ultrasound-guided fine-needle aspiration at this time. Continued follow-up is recommended. ACR TI-RADS Guidelines TR1 (0 points): Benign, No follow-up or biopsy required TR2 (2 points): Not Suspicious, No biopsy or follow up indicated TR3 (3 points): Mildly Suspicious, FNA if >= 2.5 cm, Follow if >= 1.5 cm TR4 (4-6 points): Moderately Suspicious, FNA if >= 1.5 cm, Follow if >= 1.0 cm TR5 (>=7 points): Highly Suspicious, FNA if >= 1.0 cm, Follow if >= 0.5 cm Electronically signed by: Sagar Gallardo MD 06/15/2024 12:33 PM EDT
[2024-06-15 14:22] LABS: Free T4 (Free Thyroxine) 0.87 ng/dL (0.71-1.85); Thyroid Stimulating Hormone 5.17 uIU/mL (0.32-4.0)
== END 2024-06-15 10:14 | disposition home or self-care (01) ==
LOC: HO.HMGCX 10:13
PROVIDERS: PCP Internal Medicine; Visit Provider Internal Medicine
DX: R79.89 Other specified abnormal findings of blood chemistry (principal); E04.1 Nontoxic single thyroid nodule
CPT/HCPCS: 36415; 76536; 84439; 84443

== ENCOUNTER → 2024-06-15 10:20 | Outpatient (BNV) | payer MEDICARE, SELFPAY | PROVIDERS: PCP Internal Medicine; Visit Provider Radiology Diagnostic Radiology | DX: E04.1 Nontoxic single thyroid nodule (principal) | CPT/HCPCS: 76536 ==

== ENCOUNTER 2024-08-30 10:06 | Outpatient (AMB) | payer MEDICARE, SELFPAY ==
--- NOTE | 2024-08-30 10:08 | A.OFFPC_ITS ---
Vital Signs 08/30/24 10:09 Height 4 ft 8 in Weight 97 lb 8 oz BMI 21.9 BP 120/82 Blood Pressure Location Lt brachial Position Sitting Pulse 62 Pulse Source Pulse Oximeter Pulse Oximetry (%) 98 Oxygen Delivery Method Room Air Intake Visit Reasons: Myasthenia gravis Clinical Cytogeneticist Required: No Accompanied by: Self / Same As Patient Allergies cetirizine [From [facility]] Allergy (Intermediate, Verified 08/30/24 10:09) Palpitations Medication List - Last Reconciled 08/30/24 by Jian Gutierres MD cholecalciferol (vitamin D3) 25 mcg PO DAILY cyanocobalamin (vitamin B-12) ER 1,000 mcg PO .weekly folic acid 1 mg PO DAILY pyridostigmine bromide 30 mg (1/2 x 60 mg) PO TID 30 days solifenacin (Vesicare) 5 mg PO DAILY Tobacco use date assessed: 08/30/24 Fall risk assessment: No Falls in past year Last assessed Fall Risk: 08/30/24 Dental Screening Dental Screen Date: 08/30/24 Did you have a dental visit in the last 12 months?: No Did you have a dental problem in the last 6 months where you did not have access to dental care?: No Was dental information given to patient?: No [facility] Medical History (Updated 08/30/24 @ 10:16 by Jian Gutierres MD) Non-toxic multinodular goiter Adult general medical exam Marina's disease Facial basal cell cancer Hiatal hernia Myasthenia gravis Thyroid nodule Cataract Osteoporosis COPD (chronic obstructive pulmonary disease) Hypercholesterolemia Peripheral vascular disease Surgical History S/P lumbar microdiscectomy Family History Father No problems noted. Mother Lung cancer Social History Housing: Condominium Alcohol intake: never Patient Tobacco Use Status: Never used Tobacco Tobacco use type: Cigarette e-Cigarette/Vaping Use: Never Used Second Hand Smoke Exposure: No service: No Current occupational status: retired Cognitive needs: No Hearing needs: No Vision needs: Yes Questionnaire PHQ-9 Over the last 2 weeks, how often have you been bothered by any of the following problems? 1. Little interest or pleasure in doing things: not at all 2. Feeling down, depressed, or hopeless: not at all 3. Trouble falling or staying asleep, or sleeping too much: not at all 4. Feeling tired or having little energy: not at all 5. Poor appetite or overeating: not at all 6. Feeling bad about yourself - or that you are a failure or have let yourself or your family down: not at all 7. Trouble concentrating on things, such as reading the newspaper or watching television: not at all 8. Moving or speaking so slowly that other people could have noticed. Or the opp osite - being so fidgety or restless that you have been moving around a lot more than usual: not at all 9. Thoughts that you would be better off or of hurting yourself in some way: not at all Total score: 0 Source: Developed by Drs. Sagar Howard, Faustina Peter, Danny Mcfadden and colleagues, with an educational lance from [employer]. Thrive Questionnaire Date Thrive assessed: 08/30/24 I am a: Patient What is your living situation today?: I have a steady place to live Within the past 12 months, did the food you bought not last and you didn't have the money to get more?: Never true Within the past 12 months, did you worry whether your food would run out before you got money to buy more?: Never true Do you have trouble paying for medicines?: No Do you have trouble getting transportation to medical appointments?: No Do you have trouble paying your heating and electricity bill?: No Do you have trouble taking care of your child, family member or friend?: No Do you have trouble with day-to-day activities such as bathing, preparing meals, shopping, managing finances, etc.?: No Are you currently unemployed and looking for a job?: No Are you interested in more education?: No Please select the resources that you would like help with: None Currently or been in a relationship where the following occur: I choose not to answer THRIVE Score: 0 AUDIT C Alcohol Use Questionnaire (AUDIT-C) 1. How often do you have a drink containing alcohol?: Never 3. How often do you have six or more drinks on one occasion?: Never Total Score: 0 WINSOME-7 AMB Questionnaire WINSOME-7 Date WINSOME - 7 assessed: 08/30/24 Feeling nervous, anxious, or on edge: 0 = Not at all Not being able to stop or control worryin = Not at all Worrying too much about different things: 0 = Not at all Trouble relaxin = Not at all Being so restless that it is hard to sit still: 0 = Not at all Becoming easily annoyed or irritable: 0 = Not at all Feeling afraid as if something awful might happen: 0 = Not at all Total WINSOME-7 score (0-4 normal; 5-9 mild; 10-14 moderate; 15-21 severe): 0 Source: Developed by Drs. Sagar Howard, Faustina Peter, Danny Mcfadden and colleagues, with an educational lance from [employer]. Physical exam (Primary Care) Vital Signs: Last Vital Signs Pulse 62 08/30/24 10:09 BP 120/82 08/30/24 10:09 Pulse Ox 98 08/30/24 10:09 Oxygen Delivery Method Room Air 08/30/24 10:09 BMI result Body Mass Index 21.9 Tobacco/Smoking Status: Tobacco use Status Tobacco use date assessed 08/30/24 08/30/24 10:14 Patient Tobacco Use Status Never used Tobacco 08/30/24 10:14 Tobacco use type Cigarette 08/30/24 10:14 e-Cigarette/Vaping Use Never Used 08/30/24 10:14 PHQ-9: PHQ-9 Score PHQ-9: Total score 0 08/30/24 10:14 Thrive Assessment: Date of Thrive Assessment Date Thrive assessed 08/30/24 08/30/24 10:14 Currently or been in a relationship where the following occur: I choose not to answer Const General: alert; No acute distress Eyes Conjunctivae: conjunctivae normal Resp Auscultation: clear to auscultation bilaterally Cardio Rate: regular rate Rhythm: regular rhythm GI Inspection: Yes normal to inspection Extrem General: Yes normal to inspection and No edema Coding Level of Care Code Est Pt Level 4 (45015) Diagnoses TSH elevation R79.89 Thyroid nodule E04.1 Myasthenia gravis G70.00 Hypercholesterolemia E78.00 Panlobular emphysema J43.1 COPD type: emphysema Emphysema type: panlobular Continuous leakage of urine N39.45 Urinary Incontinence type: continuous leakage Assessment & Plan Assessment & Plan (1) TSH elevation: Code(s): R79.89 - Other specified abnormal findings of blood chemistry Category: Medical Plan: New to monitor as the TSH is mildly elevated (2) Thyroid nodule: Comment: May 2020 last ultrasound, May 2021, May 2022Increase in TI-RADS category and total points left lower pole nodule. An ultrasound-guided fine-needle biopsy can be performed or a followup ultrasound in 1 year. May 2023Multiple bilateral thyroid nodules as detailed above, largest 1.4 cm left TR 4 and 1.6 cm right TR 3. Continued annual surveillance recommended. June 2024 Code(s): E04.1 - Nontoxic single thyroid nodule Category: Medical Plan: Continue to monitor (3) Myasthenia gravis: Code(s): G70.00 - Myasthenia gravis without (acute) exacerbation Category: Medical Plan: Continue with pyridostigmine (4) Hypercholesterolemia: Code(s): E78.00 - Pure hypercholesterolemia, unspecified Category: Medical Plan: Avoid fried foods, chicken skin, eggs, butter margarine, pastries and meat. Be it pork or beef they have a lot of cholesterol (5) COPD (chronic obstructive pulmonary disease): Code(s): J44.9 - Chronic obstructive pulmonary disease, unspecified Category: Medical Qualifiers: COPD type: emphysema Emphysema type: panlobular Qualified Code(s): J43.1 - Panlobular emphysema Plan: Stable (6) Urinary incontinence: Code(s): R32 - Unspecified urinary incontinence Category: Medical Qualifiers: Urinary Incontinence type: continuous leakage Qualified Code(s): N39.45 - Continuous leakage Plan History of Present Illness The patient is an 88-year-old female presenting for a follow-up visit. The patient has a history of myasthenia gravis, hypercholesterolemia, and Chronic Obstructive Pulmonary Disease (COPD). She was last seen in May 2024 and had blood work and a thyroid ultrasound performed. The thyroid ultrasound revealed multiple bilateral thyroid nodules, none of which required an ultrasound-guided fine needle biopsy. The patient's blood work in March showed a normal blood count with no anemia, and her TSH was mildly elevated at 5.17. The patient reports urinary incontinence, which she attributes to her medication. She describes the incontinence as occurring without warning, and she is considering medication to manage it despite concerns about side effects such as dryness. The patient remains physically active, engaging in activities such as cleaning her patio and gardening. She recently received her second shingles shot and is considering a tetanus booster, given her gardening activities. Health Maintenance - Vaccination: Received second shingles shot - Vaccination: Considering tetanus booster due to gardening activities Social History - Exercise: Engages in activities such as cleaning patio and gardening Review of Systems - Respiratory: Denies cough, dyspnea, or swallowing difficulties - Genitourinary: Reports urinary incontinence Physical Exam - Respiratory: Regular breathing pattern observed Results - Labs: Normal blood count with no anemia (March) - Labs: TSH mildly elevated at 5.17 - Imaging: Thyroid ultrasound showing multiple bilateral nodules, none requiring biopsy Plan The plan for the patient includes monitoring the thyroid function due to the mildly elevated TSH levels, with no immediate intervention required as the levels are not significantly elevated. The thyroid nodules will be observed without biopsy unless changes occur. For urinary incontinence, a trial of medication will be initiated to assess its effectiveness, with consideration of potential side effects such as dryness. The patient is advised to continue her current medications, including pyridostigmine for myasthenia gravis, and to maintain her cholesterol management plan. Preventative care measures include ensuring vaccinations are up to date, with a recent shingles shot administered and a tetanus booster considered due to her gardening activities. Follow-up is scheduled in three months to evaluate the response to the new medication and to reassess her overall health status. Patient was informed and verbally consented to the use of an ambient scribe for clinic note documentation during this visit. Discussion Notes I discussed with the patient the mildly elevated TSH levels and the decision to monitor without immediate intervention, as the levels are not significantly concerning. We reviewed the thyroid ultrasound results, noting the presence of nodules that do not require biopsy at this time. For urinary incontinence, I explained the option of trying medication to manage symptoms, highlighting the potential side effects such as dryness. We also discussed the importance of continuing current medications and maintaining cholesterol management. Preventative care was addressed, confirming the recent shingles vaccination and considering a tetanus booster due to her gardening activities. A follow-up appointment was scheduled in three months to assess the effectiveness of the new medication and overall health status. Patient Instructions - Monitor thyroid function as advised, no immediate action needed. - Observe thyroid nodules for any changes. - Start medication for urinary incontinence, watch for side effects like dryness. - Continue current medications, including pyridostigmine, and follow cholesterol management plan. - Ensure vaccinations are up to date; consider tetanus booster. - Return for follow-up in three months to evaluate medication effectiveness and health status. Medications: New solifenacin (Vesicare) 5 mg PO DAILY 30 tabs 2RF N39.45 - Continuous leakage
[2024-08-30 10:09] VITALS: BP 120/82; PULSE 62; O2SAT 98; BMI 21.9
== END 2024-08-30 10:27 | disposition home or self-care (01) ==
LOC: HO.HMCH 10:07
PROVIDERS: PCP Internal Medicine; Visit Provider Internal Medicine
DX: G70.00 Myasthenia gravis without (acute) exacerbation (principal); J43.1 Panlobular emphysema; R79.89 Other specified abnormal findings of blood chemistry; E04.1 Nontoxic single thyroid nodule; E78.00 Pure hypercholesterolemia, unspecified; N39.45 Continuous leakage

== ENCOUNTER → 2024-08-30 10:06 | Outpatient (BNVA) | payer MEDICARE, SELFPAY | PROVIDERS: PCP Internal Medicine; Visit Provider Internal Medicine | DX: G70.00 Myasthenia gravis without (acute) exacerbation (principal); R79.89 Other specified abnormal findings of blood chemistry; E04.1 Nontoxic single thyroid nodule; E78.00 Pure hypercholesterolemia, unspecified; J43.1 Panlobular emphysema; N39.45 Continuous leakage | CPT/HCPCS: 99212 ==

== ENCOUNTER 2025-01-16 08:52 | Outpatient (AMB) | payer MEDICARE, SELFPAY ==
--- NOTE | 2025-01-16 08:57 | A.OFFVIS_ITS ---
Intake Visit Reasons: 6M Allergies cetirizine (From [facility]) Allergy (Intermediate, Verified 08/30/24 10:09) Palpitations HPI Comments Details: 89 y/o woman with antibody positive Myasthenia Gravis presented with dysarthria in 2019, and left sided trigeminal neuralgia. She is presenting for follow-up consultation regarding her myasthenia gravis, which is stable. Her regimen includes the use of pyridostigmine thrice daily to manage symptoms associated with this neuromuscular disorder. She reports stability in voluntary muscle functions, including vision, swallowing, and breathing. Furthermore, the patient's left-sided trigeminal neuralgia remains stable, with an absence of facial pain symptoms. [facility] Medical History (Updated 01/16/25 @ 09:01 by Josue Wallace MD) Non-toxic multinodular goiter Adult general medical exam Marina's disease Facial basal cell cancer Hiatal hernia Myasthenia gravis Thyroid nodule Cataract Osteoporosis COPD (chronic obstructive pulmonary disease) Hypercholesterolemia Peripheral vascular disease Surgical History S/P lumbar microdiscectomy Family History Father No problems noted. Mother Lung cancer Social History Housing: Condominium Alcohol intake: never Patient Tobacco Use Status: Never used Tobacco Tobacco use type: Cigarette e-Cigarette/Vaping Use: Never Used Second Hand Smoke Exposure: No service: No Current occupational status: retired Cognitive needs: No Hearing needs: No Vision needs: Yes Review of Systems Narrative - Neurological: Reports stability in vision, swallowing, and general muscle function. - Neurological: Denies recurrence of left facial pain. Physical Exam Neuro Other: Mental Status: Alert and oriented to person, place, and time. Normal attention. Normal spontaneous speech, fluency, and comprehension. No obvious issues with mood and memory. Affect is appropriate. Cranial Nerves: CN II: Visual song full to confrontation, visual acuity intact. CN III, IV, : Pupils equal, round, reactive to light and accommodation. Extraocular movements are normal. CN V: Facial sensation is normal. CN VII: Facial movements symmetrical. CN VIII: Hearing intact to bedside conversation is normal. CN IX, X: Palate elevates symmetrically. CN XI: Shoulder shrug and head turn symmetrical. CN XII: Tongue midline without atrophy or fasciculations. Motor: Bulk and tone normal in all extremities. No significant muscle weakness in arms and legs. No drift. Gait and Station: No obvious gait abnormality. No ataxia or instability. Extrapyramidal: Full facial expressions and blinking. No rigidity. Movements are appropriate with no tremor or abnormality. Speech: Normal; no dysarthria or tremor. Assessment & Plan Assessment & Plan (1) Myasthenia gravis: Comment: ACR Abs at [facility] in Jun 2019: High binding and blocking titers NCV/EMG RTUE 06/29/19 Complex repetitive discharges noted in right genioglossus. Mild right median neuropathy across the Carpal tunnel. Code(s): G70.00 - Myasthenia gravis without (acute) exacerbation Category: Medical (2) Trigeminal neuralgia of left side of face: Comment: MRI brain WWO at [facility] in Apr 2022: mild to mod atrophy, mild to mod MVD CT brain WO at [facility] in Apr 2019: Mild to mod atrophy, mild to mod MVD. Code(s): G50.0 - Trigeminal neuralgia Category: Medical Plan 89 years old woman with stable antibody positive myasthenia gravis and left- sided trigeminal neuralgia type of pain syndrome, which was also stable. She was taking only small dose of pyridostigmine and was feeling fine. Clinical follow would continue and I have continued her medicine. Medications: Changed From pyridostigmine bromide 30 mg (1/2 x 60 mg) PO TID 30 days 45 tabs 0RF G70.00 - Myasthenia gravis without (acute) exacerbation To pyridostigmine bromide 30 mg (1/2 x 60 mg) PO TID 135 tabs 1RF 90 days G70.00 - Myasthenia gravis without (acute) exacerbation Coding Level of Care Code Est Pt Level 4 (82730) Diagnoses Myasthenia gravis G70.00 Trigeminal neuralgia of left side of face G50.0
== END 2025-01-16 09:06 | disposition home or self-care (01) ==
LOC: HO.HSM 08:53
PROVIDERS: PCP Internal Medicine; Referring Provider Internal Medicine; Visit Provider Psychiatry & Neurology Neurology
DX: G70.00 Myasthenia gravis without (acute) exacerbation (principal); G50.0 Trigeminal neuralgia
CPT/HCPCS: 99214

== ENCOUNTER → 2025-01-16 08:52 | Outpatient (BNVA) | payer MEDICARE, SELFPAY | PROVIDERS: PCP Internal Medicine; Referring Provider Internal Medicine; Visit Provider Psychiatry & Neurology Neurology | DX: G70.00 Myasthenia gravis without (acute) exacerbation (principal); G50.0 Trigeminal neuralgia | CPT/HCPCS: 99212 ==